=== PATIENT | female | born 1960 | race Caucasian/White ===

== ENCOUNTER 2017-09-30 18:22 | Emergency (ER) | payer OTHER ==
[~2017-09-30] VITALS: Ht 154.9 cm; Wt 56.7 kg
--- NOTE | 2017-09-30 18:44 | ED Back Pain ---
General Chief Complaint: Back Problems Stated Complaint: BACK PAIN COMING AROUND R SIDE Source of Information: Patient, Other Exam Limitations: No Limitations History of Present Illness Date Seen by Provider: Sep 30, 2017 Time Seen by Provider: 18:35 Initial Comments Patient presents to the ER by private conveyance with her significant other and a chief complaint for the past week she's had a progressively worsening productive cough and she had a large coughing fit yesterday resulted in some pain in her right back radiating around to the right side. She thinks she might have pulled a rib or broke her rib from the coughing fit. She does have COPD and she does have albuterol for which she uses for this. She smokes about a quarter pack cigarettes per day. She denies any trauma, fevers, nausea vomiting or subjective shortness of breath. She says it hurts take a deep breath and twist or to touch her right side ribs. She went to her primary care doctor this morning and they ordered x-rays [facility] but she has not got the read back on that. They told her she still having this much pain she go to the ER for evaluation. Spoke with [facility] and got a report on the x-ray showing negative for infiltrations although there is some atelectasis on bilateral bases. There is stable air trapping seen system of COPD. Nodular opacity seen on the left heart border on previous x-rays is not seen today and if we are evaluating for that we should consider CT of the chest. Negative for acute osseous abnormalities. Allergies and Home Medications Allergies Uncoded Allergies: ANTIBIOTIC (Allergy, Unknown, 09/30/17) Patient Home Medication List Home Medication List Reviewed: Yes Constitutional: No chills, No diaphoresis, No fever, No malaise EENTM: No ear discharge, No ear pain Respiratory: cough, phlegm, No short of breath, wheezing Cardiovascular: see HPI, chest pain, No edema, No palpitations Gastrointestinal: No abdominal pain, No constipation, No diarrhea, No nausea, No vomiting Genitourinary: No discharge, No dysuria Past Aaxtosd-Wxkwfq-Rkeygt Hx Patient Social History Smoking Status: Current Everyday Smoker Type Used: Cigarettes (0.25 ppd) Recent Foreign Travel: No Contact w/Someone Who Travel: No Physical Exam Vital Signs Vital Signs - First Documented 09/30/17 18:31 Temp 98.0 Pulse 113 Resp 18 B/P (MAP) 156/99 (118) Pulse Ox 97 O2 Delivery Room Air Capillary Refill : General Appearance: No Apparent Distress, WD/WN, Anxious HEENT: PERRL/EOMI, Pharynx Normal Neck: Full Range of Motion, Normal Inspection, Non Tender, Supple Cardiovascular: Regular Rate, Rhythm, No Edema, Normal Peripheral Pulses Respiratory: No Accessory Muscle Use, No Respiratory Distress, Wheezing, Other (no labored breathing but the chest is definite tender on the right flank ribs about T10 through T12) Peripheral Pulses: 2+ Radial Pulses (R), 2+ Radial Pulses (L) Back: Normal Inspection, No CVA Tenderness, No Vertebral Tenderness Neurologic/Psychiatric: Alert, Oriented x3 Progress/Results/Core Measures Results/Orders Lab Results Laboratory Tests Test 09/30/17 18:53 Range/Units White Blood Count 11.8 H 4.3-11.0 10^3/uL Red Blood Count 4.35 4.35-5.85 10^6/uL Hemoglobin 13.7 11.5-16.0 G/DL Hematocrit 41 35-52 % Mean Corpuscular Volume 95 80-99 FL Mean Corpuscular Hemoglobin 32 25-34 PG Mean Corpuscular Hemoglobin Concent 33 32-36 G/DL Red Cell Distribution Width 12.5 10.0-14.5 % Platelet Count 332 130-400 10^3/uL Mean Platelet Volume 8.6 7.4-10.4 FL Neutrophils (%) (Auto) 71 42-75 % Lymphocytes (%) (Auto) 22 12-44 % Monocytes (%) (Auto) 7 0-12 % Eosinophils (%) (Auto) 1 0-10 % Basophils (%) (Auto) 0 0-10 % Neutrophils # (Auto) 8.4 H 1.8-7.8 X 10^3 Lymphocytes # (Auto) 2.6 1.0-4.0 X 10^3 Monocytes # (Auto) 0.8 0.0-1.0 X 10^3 Eosinophils # (Auto) 0.1 0.0-0.3 10^3/uL Basophils # (Auto) 0.0 0.0-0.1 10^3/uL Sodium Level 136 135-145 MMOL/L Potassium Level 3.9 3.6-5.0 MMOL/L Chloride Level 99 98-107 MMOL/L Carbon Dioxide Level 28 21-32 MMOL/L Anion Gap 9 5-14 MMOL/L Blood Urea Nitrogen 19 H 7-18 MG/DL Creatinine 0.74 0.60-1.30 MG/DL Estimat Glomerular Filtration Rate > 60 BUN/Creatinine Ratio 26 Glucose Level 105 70-105 MG/DL Calcium Level 9.3 8.5-10.1 MG/DL Total Bilirubin 0.4 0.1-1.0 MG/DL Aspartate Amino Transf (AST/SGOT) 17 5-34 U/L Alanine Aminotransferase (ALT/SGPT) 12 0-55 U/L Alkaline Phosphatase 83 40-136 U/L C-Reactive Protein High Sensitivity 2.39 H 0.00-0.50 MG/DL Total Protein 7.5 6.4-8.2 GM/DL Albumin 4.3 3.2-4.5 GM/DL My Orders Orders - ARON WRIGHT Cbc With Automated Diff (09/30/17 18:46) Comprehensive Metabolic Panel (09/30/17 18:46) Hs C Reactive Protein (09/30/17 18:46) Albuterol Pre-Mix Nebs (Rt) (Proventil (09/30/17 18:46) Albuterol/Ipra Inhalation Soln (Duoneb I (09/30/17 19:00) Svn Sm Volume Nebulizer Rt-Rfs (09/30/17 18:46) Albuterol/Ipra Inhalation Soln (Duoneb I (09/30/17 18:47) Jf-Ngxjchi-Xrffzr (Order) (09/30/17 18:54) Methylprednisolone Sod Succ (Solu-Medrol (09/30/17 19:00) Medications Given in ED Current Medications Medications Dose Ordered Sig/Kalyn Route Start Time Stop Time Status Last Admin Dose Admin Albuterol/ Ipratropium 3 ml ONCE ONCE INH 09/30/17 19:00 09/30/17 19:01 DC 09/30/17 18:49 3 ML Methylprednisolone Sodium Succinate 125 mg ONCE ONCE IVP 09/30/17 19:00 09/30/17 19:01 DC 09/30/17 19:14 125 MG Vital Signs/I&O Vital Sign - Last 12Hours 09/30/17 18:31 Temp 98.0 Pulse 113 Resp 18 B/P (MAP) 156/99 (118) Pulse Ox 97 O2 Delivery Room Air Progress Note #1: Time: 18:44 Progress Note No evidence on her radiograph of pneumonia however she does have pretty severe wheezing sore and give her some breathing treatments and make sure she has appropriate treatments at home. She probably do well with some steroids for both the anti-inflammatory pain property as well as her COPD exacerbation. We' ll make sure she has close follow-up with her primary care physician early next week. Progress Note #2: Time: 19:25 Progress Note Patient's wheezing has completely resolved however she still has some tightness of her air sounds. She feels much better and is ready to go home. Lab is not remarkable for pneumonia. Still afebrile and her tachycardia has improved significantly to 105 which is reasonable after 2 albuterol breathing treatments. She assures me she has plenty of albuterol home. Departure Impression Impression: Primary Impression: COPD with acute exacerbation Additional Impression: Rib pain on right side Disposition: 01 HOME, SELF-CARE Condition: Improved Departure-Patient Inst. Decision time for Depature: 19:26 Referrals: ELLIE GIFFORD (PCP/Family) Primary Care Physician Patient Instructions: Exacerbation of COPD (DC) Add. Discharge Instructions: For the first 3 days take 2 tablets of prednisone twice a day. For the next 3 days take one tablet of prednisone twice a day and for the final 3 days take one tablet of prednisone daily for a total of 9 days. Plan to follow up with your primary care physician next week. If he started developing fevers or worsening shortness of breath or your albuterol was not sufficient to control your coughing, wheezing or shortness of breath return to the ER nearest you. Use ibuprofen 800 mg every 8 hours and Tylenol thousand milligrams every 6 hours as well as creams such as icy hot for your rib pain. All discharge instructions reviewed with patient and/or family. Voiced understanding. Scripts Prednisone (Prednisone) 20 Mg Tab 40 MG PO BID for 9 Days, #18 TAB 0 Refills 2 tabs twice daily x 3 days 1 tab twice daily x 3 days 1 tab daily x 3 days Prov: ARON WRIGHT 09/30/17 Azithromycin (Azithromycin) 250 Mg Tablet 250 MG PO DAILY, #4 TAB 0 Refills Prov: ARON WRIGHT 09/30/17 Copy Copies To 1: CHRIS LOPEZ TITUS J Sep 30, 2017 18:44
[2017-09-30] MEDS ORDERED: RT-ALBUTEROL SULF 2.5 MG/3 ML PRE-MIX VIAL INH STA (18:46)
[2017-09-30] MEDS ORDERED: RT-ALBUTEROL/IPRATROPIUM 3 ML (DUONEB) VIAL ONE (18:47)
[2017-09-30] MEDS ORDERED: methylPREDNISolone 125 MG (Solu-MEDROL) VIAL IVP ONE (19:00)
[2017-09-30] MEDS ORDERED: RT-ALBUTEROL/IPRATROPIUM 3 ML (DUONEB) VIAL INH ONE (19:00)
[2017-09-30 19:04] LABS: BASOPHILS % (AUTO) 0 % (0-10); EOSINOPHILS # (AUTO) 0.1 10^3/uL (0.0-0.3); EOSINOPHILS % (AUTO) 1 % (0-10); HEMATOCRIT 41 % (35-52); HEMOGLOBIN 13.7 G/DL (11.5-16.0); LYMPHOCYTES # (AUTO) 2.6 X 10^3 (1.0-4.0); LYMPHOCYTES % (AUTO) 22 % (12-44); MEAN CORPUSCULAR HEMOGLOBIN 32 PG (25-34); MEAN CORPUSCULAR HGB CONC 33 G/DL (32-36); MEAN CORPUSCULAR VOLUME 95 FL (80-99); MEAN PLATELET VOLUME 8.6 FL (7.4-10.4); MONOCYTES # (AUTO) 0.8 X 10^3 (0.0-1.0); MONOCYTES % (AUTO) 7 % (0-12); NEUTROPHILS # (AUTO) 8.4 X 10^3 (1.8-7.8); NEUTROPHILS % (AUTO) 71 % (42-75); PLATELET COUNT 332 10^3/uL (130-400); RED BLOOD COUNT 4.35 10^6/uL (4.35-5.85); RED CELL DISTRIBUTION WIDTH 12.5 % (10.0-14.5); WHITE BLOOD COUNT 11.8 10^3/uL (4.3-11.0)
[2017-09-30 19:22] LABS: ALANINE AMINOTRANSFERASE 12 U/L (0-55); ALBUMIN 4.3 GM/DL (3.2-4.5); ALKALINE PHOSPHATASE 83 U/L (40-136); BILIRUBIN,TOTAL 0.4 MG/DL (0.1-1.0); BUN/CREATININE RATIO 26; CALCIUM 9.3 MG/DL (8.5-10.1); CARBON DIOXIDE 28 MMOL/L (21-32); CHLORIDE 99 MMOL/L (98-107); CREATININE SERUM 0.74 MG/DL (0.60-1.30); GFR ESTIMATED > 60; GLUCOSE 105 MG/DL (70-105); POTASSIUM 3.9 MMOL/L (3.6-5.0); SODIUM 136 MMOL/L (135-145); TOTAL PROTEIN 7.5 GM/DL (6.4-8.2)
[2017-09-30] MEDS ORDERED: AZIT250T12 PO (19:32)
[2017-09-30] MEDS ORDERED: PRD20T PO (19:32)
[2017-09-30 19:42] VITALS: BP 138/78
[2017-09-30] MEDS ORDERED: AZITHROMYCIN 250 MG TAB (ZITHROMAX) PO ONE (19:45)
== END 2017-09-30 19:41 | disposition home or self-care (01) ==
LOC: EDUNIT# 18:22 → ER 18:24
DX: J44.1 Chronic obstructive pulmonary disease with (acute) exacerbation (principal); R07.2 Precordial pain; F17.210 Nicotine dependence, cigarettes, uncomplicated; Z88.1 Allergy status to other antibiotic agents
CPT/HCPCS: 36415; 80053; 85025; 86141; 96374

== ENCOUNTER 2019-03-13 05:48 | Outpatient (CLI) | payer OTHER ==
[~2019-03-13] VITALS: Ht 154.9 cm; Wt 56.7 kg
[~2019-03-13 05:48] MED LIST: AZIT250T12 PO; PRD20T PO
== END 2019-03-13 14:40 | disposition home or self-care (01) ==
LOC: PREOP 05:48
PROVIDERS: ATTEND Surgery
DX: Z01.818 Encounter for other preprocedural examination (principal)

== ENCOUNTER 2019-03-20 07:14 | Day surgery (SDC) | payer BC, OTHER ==
[~2019-03-20] VITALS: Ht 154.9 cm; Wt 56.7 kg
[2019-03-20] VITALS (10 sets, daily range): BP systolic 123–155; BP diastolic 68–101
[2019-03-20] MEDS ORDERED: LACTATED RINGERS 1,000 ML IV ONE (07:30)
[2019-03-20] MEDS ORDERED: LACTATED RINGERS 1,000 ML IV STA (07:32)
[2019-03-20] MEDS ORDERED: RT-ALBUTEROL SULF 2.5 MG/3 ML PRE-MIX VIAL ONE (07:38)
[2019-03-20] MEDS ORDERED: RT-ALBUTEROL SULF 2.5 MG/3 ML PRE-MIX VIAL INH ONE (07:40)
[2019-03-20] MEDS ORDERED: FLUO40CA12 PO (08:04)
[2019-03-20] MEDS ORDERED: HYDR12.525 PO (08:04)
[2019-03-20] MEDS ORDERED: POLY17PO6 PO (08:04)
[2019-03-20] MEDS ORDERED: FLUO20CA42 PO (08:04)
[2019-03-20] MEDS ORDERED: BUSP15TA60 PO (08:04)
[2019-03-20] MEDS ORDERED: TIOT18CA2 IH (08:04)
[2019-03-20] MEDS ORDERED: SPIRIVA PO (08:04)
[2019-03-20] MEDS ORDERED: CEPH500C PO (08:04)
[2019-03-20] MEDS ORDERED: MIDAZOLAM 2 MG/2 ML (VERSED) VIAL ONE (08:06)
[2019-03-20] MEDS ORDERED: proPOfol 200 MG/20 ML (DIPRIVAN) VIAL IV ONE (08:06)
[2019-03-20] MEDS ORDERED: PANT40TA2 PO (08:13)
[2019-03-20] MEDS ORDERED: IBUP-2055 PO (08:13)
[2019-03-20] MEDS ORDERED: RT-ALBUINH IH (08:13)
[2019-03-20] MEDS ORDERED: BENZ100C18 PO (08:13)
[2019-03-20] MEDS ORDERED: ALBU2.5V4 INH (08:13)
[2019-03-20] MEDS ORDERED: CLON0.5T PO (08:13)
[2019-03-20] MEDS ORDERED: HURRICAINE EXT TUBE (BENZOCAINE) XX ONE (08:15)
--- NOTE | 2019-03-20 09:00 | Progress Note-Post Operative ---
Post-Operative Progess Note Surgeon (s)/International Logistics Analyst (s) Surgeon SUMIT MCFADDEN DO International Logistics Analyst: none Pre-Operative Diagnosis Bloating, Epigastric pain Post-Operative Diagnosis Gastritis Hiatal Hernia Gastric Polyp Procedure & Operative Findings Date of Procedure 03/20/19 Procedure Performed/Findings EGD with bx Anesthesia Type IV sedation by AVIATION MAINTENANCE INSTRUCTOR Estimated Blood Loss Estimated blood loss (mL): scant Specimens/Packing Specimens Removed antral bx body of stomach bx GE jxn bx SUMIT MCFADDEN DO Mar 20, 2019 09:00
--- NOTE | 2019-03-20 09:02 | Endoscopy Discharge Instruct ---
Endo Procedure/Findings Findings 1.: Gastritis 2.: Hiatal Hernia Discharge Instructions - Activity: You might feel a little sleepy until tomorrow. This is due to the medicine you received to relax you. Until tomorrow, you should: NOT drive a car, operate machinery or power tools. NOT drink any alcoholic beverages. NOT make any important decisions or sign importortant papers. Do not return to work until tomorrow, unless otherwise instructed. Resume previous activities tomorrow. Diet: Start by taking liquids. If you tolerate liquids, advance to solid food. Make an appointment for one week. Notify Physician - If you experience excessive bleeding, unusual abdominal pain, fever, or chest pain, contact your doctor immediately. Follow-Up: - I have received and understand the above instructions and will call my doctor if I have any further questions. Patient Signature Date Nurse Signature Other (Relationship) SUIMT MCFADDEN DO Mar 20, 2019 09:02
--- NOTE | 2019-03-20 10:28 | Anesthesia-General Post-Op ---
MAC Patient Condition Mental Status/LOC: Same as Preop Cardiovascular: Satisfactory Nausea/Vomiting: Absent Respiratory: Satisfactory Pain: Controlled Complications: Absent Post Op Complications Complications None Follow Up Care/Instructions Patient Instructions None needed. Anesthesiology Discharge Order Discharge Order Patient is doing well, no complaints, stable vital signs, no apparent adverse anesthesia problems. No complications reported per nursing. KENDELL CARRERO CRNA Mar 20, 2019 10:28
--- NOTE | 2019-03-20 13:52 | OPERATIVE REPORT ---
DATE OF SERVICE: 03/20/2019 PREOPERATIVE DIAGNOSES: 1. Bloating. 2. Epigastric pain. POSTOPERATIVE DIAGNOSES: 1. Gastritis. 2. Hiatal hernia. 3. Gastric polyps. SURGEON: Tim Watkins DO GRANTS DIRECTOR: None. ANESTHESIA: IV sedation by OCEAN TRANSPORTATION INTERMEDIARY. SPECIMEN: One biopsy from the antrum, one biopsy from the body of stomach, one biopsy from the GE junction. BLOOD LOSS: Scant. FLUIDS: Per anesthesia. POSTOPERATIVE CONDITION: Stable. INDICATION FOR PROCEDURE: The patient is a 58-year-old female who has been having abdominal pain, bloating, whenever she eats she gets this epigastric pain and needed a workup. FINDINGS: The patient had some gastritis. She also had a hiatal hernia and has had gastric polyps, which indicates a long-term gastritis and PPI intake. PROCEDURE NOTE: After informed consent was obtained, the patient was brought to the endoscopy suite and placed in the left lateral decubitus position. She was administered IV sedation by the OCE[employer] TRANSPORTATION INTERMEDIARY who then monitored her vitals the entire time, heart rate, blood pressure and pulse ox and the scope was inserted down the mouth through the esophagus into the stomach. Upon entering the stomach, noted some gastritis. Pushed forward, pushed through the antrum into the duodenum, duodenum looked fine. Took a picture and then pulled back into the antrum and noted again gastritis and elected to do a biopsy of the antrum and then pulled the scope back and noted some polyps and elected to do a biopsy of the body of stomach and take a polyp out through this with just biopsy forceps. Retroflexed the scope, saw hiatal hernia, maybe 1 to 2 cm hernia. Pulled back into the GE junction, looked okay and then pulled the scope up the esophagus and out the mouth. The patient tolerated the procedure. She was recovered in endoscopy suite. Job ID: [id number] DocumentID: [id number] Dictated Date: 03/20/2019 09:10:58 Plumbing Inspector Date: 03/20/2019 13:51:55 Dictated By: TIM WATKINS DO
== END 2019-03-20 10:03 | disposition home or self-care (01) ==
LOC: ENDO 07:14
PROVIDERS: ATTEND Surgery
DX: K29.50 Unspecified chronic gastritis without bleeding (principal); K21.9 Gastro-esophageal reflux disease without esophagitis; K44.9 Diaphragmatic hernia without obstruction or gangrene; K31.7 Polyp of stomach and duodenum; J44.9 Chronic obstructive pulmonary disease, unspecified; I10 Essential (primary) hypertension; Z99.89 Dependence on other enabling machines and devices; Z88.6 Allergy status to analgesic agent; Z88.1 Allergy status to other antibiotic agents; Z88.8 Allergy status to other drugs, medicaments and biological substances; Z82.49 Family history of ischemic heart disease and other diseases of the circulatory system
CPT/HCPCS: 88305; 94640

== ENCOUNTER → 2019-09-06 | Outpatient (CLI) | payer BC, OTHER ==
[~2019-09-06] MED LIST changes: +ALBU2.5V4 INH; +BENZ100C18 PO; +BUSP15TA60 PO; +CEPH500C PO; +CLON0.5T PO; +FLUO20CA42 PO; +FLUO40CA12 PO; +HYDR12.525 PO; +IBUP-2473 PO; +PANT40TA2 PO; +POLY17PO6 PO; +RT-ALBUINH IH; +SPIRIVA PO; +TIOT18CA2 IH
--- NOTE | 2019-09-06 16:13 | Diagnostic Imaging Report ---
EXAMINATION: CT Chest without contrast. TECHNIQUE: Multiple contiguous axial images were obtained through the chest without the use of intravenous contrast. All CT scans use one or more of the following dose optimizing techniques: automated exposure control, MA and/or KvP adjustment based on a patient size and exam type, or iterative reconstruction. HISTORY: Lung cancer. COMPARISON: 04/14/2019 FINDINGS: There is no edema or pneumonia. No pleural effusion. No pneumothorax. The right upper lobe nodule is decreased in size measuring 10 mm, previously 16 mm. Surrounding scarring or atelectasis is likely related to radiation. Lungs are moderately emphysematous. No other pulmonary nodules are seen. Heart size is normal. There are moderate coronary artery calcifications. No pericardial effusion. Aorta is normal in caliber. There is no axillary or supraclavicular lymphadenopathy. There is no mediastinal lymphadenopathy. Limited views of the upper abdomen show changes of cholecystectomy. There are no suspicious osseous lesions. There are old right-sided rib fractures. IMPRESSION: 1. Decrease in size of right upper lobe pulmonary nodules surrounding scarring or atelectasis suggestive of radiation changes. Dictated by: Dictated on workstation # [id number]
== END ==
LOC: RAD 14:18
PROVIDERS: ATTEND Nurse Practitioner Family
DX: C34.11 Malignant neoplasm of upper lobe, right bronchus or lung (principal)
CPT/HCPCS: 71250

== ENCOUNTER → 2020-01-18 | Outpatient (CLI) | payer OTHER ==
--- NOTE | 2020-01-18 11:47 | Diagnostic Imaging Report ---
PROCEDURE: CT chest without contrast. TECHNIQUE: Multiple contiguous axial images were obtained through the chest without the use of intravenous contrast. Auto Exposure Controls were utilized during the CT exam to meet ALARA standards for radiation dose reduction. INDICATION: Malignant neoplasm involving upper lobe of right lung. COMPARISON: Comparison is made to study of 09/06/2019. FINDINGS: There has been an overall increase in atelectasis in the basilar medial aspect of the right upper lobe. There is also scarring more superiorly in the right upper lobe anterior to the aortic trunk. Background emphysema is again noted. No new mass is identified. Unenhanced images reveal no definite pathologic adenopathy within the pulmonary braulio. Mildly prominent precarinal lymph nodes are stable. IMPRESSION: Post-therapeutic changes in the right lung with increased atelectasis in the right perihilar region. No new mass or adverse change is identified. Dictated by: Dictated on workstation # [id number]
== END ==
LOC: RAD 10:56
PROVIDERS: ATTEND Nurse Practitioner Family
DX: C34.11 Malignant neoplasm of upper lobe, right bronchus or lung (principal); J98.11 Atelectasis
CPT/HCPCS: 71250

== ENCOUNTER → 2020-03-15 | Outpatient (CLI) | payer OTHER ==
--- NOTE | 2020-03-15 14:58 | Diagnostic Imaging Report ---
INDICATION: Routine screening. COMPARISON: Prior mammograms from 11/24/2018 and 01/06/2013. EXAMINATION: 2D and 3D bilateral screening mammography was performed with CAD. The current study was also evaluated with a Computer Aided Detection (CAD) system. FINDINGS: Scattered fibroglandular densities are identified, bilaterally. Ovoid circumscribed density in the upper-outer right breast appears stable. No new mass or malignant appearing microcalcification is seen. Axillae are unremarkable. IMPRESSION: No mammographic features suspicious for malignancy are identified. ACR BI-RADS Category 2: Benign findings. Result letter will be mailed to the patient. Note: At least 10% of breast cancer is not imaged by mammography. Dictated by: Dictated on workstation # [id number]
== END ==
LOC: RAD 09:15
PROVIDERS: ATTEND Student in an Organized Health Care Education/Training Program
DX: Z12.31 Encounter for screening mammogram for malignant neoplasm of breast (principal)
CPT/HCPCS: 77063; 77067

== ENCOUNTER → 2020-05-16 | Outpatient (CLI) | payer OTHER ==
--- NOTE | 2020-05-16 12:53 | Diagnostic Imaging Report ---
PROCEDURE: US Gallbladder. TECHNIQUE: Multiple real-time grayscale images were obtained over the right upper quadrant in various projections. INDICATION: Right upper quadrant pain. FINDINGS: The liver is normal in size at 14 cm. No discrete liver mass is detected. Portal vein is patent and shows normal direction of flow. Gallbladder is surgically absent. No biliary duct dilatation is seen. Visualized pancreas unremarkable. Aorta was not well visualized. IVC is patent. Right kidney is without calculi or hydronephrosis. There is no ascites. IMPRESSION: Status post cholecystectomy. No acute feature is detected. Dictated by: Dictated on workstation # [id number]
== END ==
LOC: RAD 08:48
PROVIDERS: ATTEND Nurse Practitioner Family
DX: R10.11 Right upper quadrant pain (principal); Z90.49 Acquired absence of other specified parts of digestive tract
CPT/HCPCS: 76705

== ENCOUNTER → 2020-05-20 | Outpatient (CLI) | payer OTHER ==
[~2020-05-20] MED LIST changes: +CATHETER FLUSH 10 ML SYR IV PRN
--- NOTE | 2020-05-20 10:41 | Diagnostic Imaging Report ---
INDICATION: Right upper quadrant abdominal pain. Patient has had prior cholecystectomy. TECHNIQUE: The patient was administered 5.4 mCi of technetium 99m intravenously and imaging over the abdomen was performed. FINDINGS: There is homogeneous uptake of activity by the liver. Prompt excretion of activity into the common duct is noted with normal passage into the small bowel. The gallbladder is surgically absent. IMPRESSION: Patent common duct. The gallbladder is surgically absent. Dictated by: Dictated on workstation # [id number]
== END ==
LOC: CARD 09:24
PROVIDERS: ATTEND Nurse Practitioner Family
DX: R10.11 Right upper quadrant pain (principal)
CPT/HCPCS: 78226; A9537

== ENCOUNTER → 2020-07-10 | Outpatient (CLI) | payer OTHER ==
[~2020-07-10] MED LIST changes: -CATHETER FLUSH 10 ML SYR IV PRN
--- NOTE | 2020-07-10 10:06 | Diagnostic Imaging Report ---
PROCEDURE: CT chest without contrast. TECHNIQUE: Multiple contiguous axial images were obtained through the chest without the use of intravenous contrast. Auto Exposure Controls were utilized during the CT exam to meet ALARA standards for radiation dose reduction. INDICATION: Cough, COPD The prior exam of 01/18/2020 noted that the lungs were hyperexpanded and that there appeared to be chronic atelectasis/scar formation involving the right middle lobe. Those findings are again evident on this study and do not seem to have changed significantly. There is no evidence for failure, pneumonia or for pleural effusion to indicate an acute abnormality. There is no parenchymal lung mass visualized either. The heart size is stable when compared to the prior exam. There are extensive coronary artery calcifications evident. The aorta is not abnormally dilated. There is no obvious mediastinal or hilar adenopathy. The thyroid gland is not well imaged. The sections through the upper abdomen again show that the gallbladder is surgically absent. There is no acute abnormality noted. The bone windows are unremarkable for a acute fracture or for destructive lesion. The compression deformities of the mid thoracic vertebra an incompletely healed fracture of the right 7th and 8th ribs seen previously are again evident and no different. Impression: There is chronic pulmonary disease but there is no sign of an acute cardiopulmonary abnormality. When compared to the prior study there has been no significant change. Dictated by: Dictated on workstation # [id number]
== END ==
LOC: RAD 09:21
PROVIDERS: ATTEND Radiology Radiation Oncology
DX: C34.11 Malignant neoplasm of upper lobe, right bronchus or lung (principal)
CPT/HCPCS: 71250

== ENCOUNTER 2020-08-23 21:08 | Inpatient (IN) | payer OTHER ==
[~2020-08-23] VITALS: Ht 157 cm; Wt 55.3 kg
[2020-08-23] MEDS ORDERED: morphine INJ 10 MG/ML 1ML (SYR OR VIAL) ONE (21:15)
[2020-08-23] MEDS ORDERED: NITROGLYCERIN 0.4 MG SL TABS BTL 25'S SL PRN (21:15)
[2020-08-23] MEDS ORDERED: HEParin 1000 UNIT/ML (10ML VIAL) FOR BOLUS ONE ×2 (21:18→21:41)
[2020-08-23] MEDS ORDERED: CLOPIDOGREL 300 MG (PLAVIX) TABLET PO ONE ×3 (21:18→21:30)
[2020-08-23 21:25] LABS: BASOPHILS % (AUTO) 0 % (0-10); EOSINOPHILS # (AUTO) 0.1 10^3/uL (0.0-0.3); EOSINOPHILS % (AUTO) 0 % (0-10); HEMATOCRIT 41 % (35-52); HEMOGLOBIN 13.6 g/dL (11.5-16.0); LYMPHOCYTES # (AUTO) 2.3 10^3/uL (1.0-4.0); LYMPHOCYTES % (AUTO) 13 % (12-44); MEAN CORPUSCULAR HEMOGLOBIN 33 pg (25-34); MEAN CORPUSCULAR HGB CONC 34 g/dL (32-36); MEAN CORPUSCULAR VOLUME 99 fL (80-99); MEAN PLATELET VOLUME 8.8 fL (9.0-12.2); MONOCYTES # (AUTO) 0.9 10^3/uL (0.0-1.0); MONOCYTES % (AUTO) 5 % (0-12); NEUTROPHILS # (AUTO) 14.8 10^3/uL (1.8-7.8); NEUTROPHILS % (AUTO) 82 % (42-75); PLATELET COUNT 304 10^3/uL (130-400); WHITE BLOOD COUNT 18.1 10^3/uL (4.3-11.0)
[2020-08-23] MEDS ORDERED: ALBUTEROL/IPRATROP (COMBIVENT RESPIMAT) 4 GM INHALER ONE (21:25)
--- NOTE | 2020-08-23 21:25 | NUR ---
RADIOTRANSPARENT DEFIB PATCHES PLACED TO PT.
--- NOTE | 2020-08-23 21:25 | NUR ---
RAPID COVID COLLECTED PRIOR TO LINE RUNNER ADMIT.
[2020-08-23] MEDS ORDERED: HEParin (CATH LAB) 1,000 ML IV ONE (21:26)
[2020-08-23] MEDS ORDERED: NS IV 1000 ML 1,000 ML IV ONE ×2 (21:26→21:45)
[2020-08-23] MEDS ORDERED: LIDOCAINE 1% INJ 20 ML 20 ML VIAL INJ ONE (21:26)
[2020-08-23] MEDS ORDERED: NITRO DRIP 25000 MCG/D5W 250 ML IV ONE (21:26)
[2020-08-23] MEDS ORDERED: ONDANSETRON 4 MG/2 ML (SDV) Z0FRAN IVP ONE (21:30)
[2020-08-23] MEDS ORDERED: morphine INJ 10 MG/ML 1ML (SYR OR VIAL) IVP ONE ×2 (21:30)
--- NOTE | 2020-08-23 21:35 | Diagnostic Imaging Report ---
EXAMINATION: Chest 1 view. HISTORY: Chest pain. COMPARISON: CT chest on 07/10/2020. FINDINGS: The lung volumes are normal. No focal consolidation is seen. No large pleural effusion or pneumothorax is seen. The cardiomediastinal silhouette is normal in size and contour. No acute osseous abnormality is seen. Old right-sided rib fractures are noted. IMPRESSION: No acute pleuroparenchymal process. Dictated by: Dictated on workstation # [id number]
--- NOTE | 2020-08-23 21:35 | ED Chest Pain ---
General Chief Complaint: Chest Pain Stated Complaint: STEMI Source: patient History of Present Illness Date Seen by Provider: Aug 23, 2020 Time Seen by Provider: 21:12 Initial Comments PT ARRIVES VIA [facility] FROM HOME C/O LEFT SIDED CHEST PAIN AND LEFT ARM PAIN SINCE 1929 OR 1999 TONIGHT--WAS SITTING WHEN PAIN BEGAN RATES PAIN 10/10 EMS GAVE ASPIRIN AND NTG X2--STATES PAIN WENT DOWN TO A 5/10, BUT NOW IS BACK TO A 10/10 INITIAL BP WAS IN 170'S SYSTOLIC FOR EMS, THEN DROPPED TO 120'S AFTER NTG C/O NAUSEA AND VOMITED X 1 PT HAS COPD AND WEARS HOME O2 PRN, STATES HER SHORTNESS OF BREATH IS NOT ANY WORSE THAN NORMAL NO SWEATS NO SYNCOPE NO PALPITATIONS NO SWELLING IN LEGS/FEET OR PAIN IN CALVES DENIES ANY COVID-19 SYMPTOMS OR KNOWN EXPOSURE. DENIES ANY HISTORY OF CARDIAC PROBLEMS. PCP: DR. DUPONT AT [facility] Allergies and Home Medications Allergies Coded Allergies: albuterol (Unverified Allergy, Unknown, 03/20/19) aspirin (Unverified Allergy, Unknown, 03/20/19) ciprofloxacin (Unverified Allergy, Unknown, 03/20/19) clindamycin (Unverified Allergy, Unknown, 03/20/19) levofloxacin (Unverified Allergy, Unknown, 03/20/19) Uncoded Allergies: ANTIBIOTIC (Allergy, Unknown, 09/30/17) Home Medications Albuterol Sulfate 2.5 Mg/3 Ml Vial.neb, 2.5 MG INH DAILY, (Reported) Albuterol Sulfate 1 Puff Puff, 2 PUFF IH Q6H PRN for SHORTNESS OF BREATH, (Reported) 1 PUFF = 90 MCG Azithromycin 250 Mg Tablet, 250 MG PO DAILY Prescribed by: ARON WRIGHT on 09/30/171931 Benzonatate 100 Mg Capsule, 200 MG PO TID, (Reported) Buspirone HCl 15 Mg Tablet, 15 MG PO DAILY, (Reported) Cephalexin 500 Mg Capsule, 500 MG PO QID, (Reported) Clonazepam 0.5 Mg Tablet, 0.5 MG PO BID, (Reported) Fluoxetine HCl 20 Mg Capsule, 40 MG PO DAILY, (Reported) Fluoxetine HCl 40 Mg Capsule, 40 MG PO DAILY, (Reported) Hydrochlorothiazide 12.5 Mg Capsule, 12.5 MG PO DAILY, (Reported) Ibuprofen 200 Mg Tablet, 200 MG PO PRN, (Reported) Pantoprazole Sodium 40 Mg Tablet.dr, 40 MG PO DAILY, (Reported) Polyethylene Glycol 3350 17 Gm Powd.pack, 17 GM PO PRN, (Reported) Tiotropium [place] 1 Inh Aerp, 18 INH IH DAILY, (Reported) [Spiriva] , 18 MCG PO DAILY, (Reported) Patient Home Medication List Home Medication List Reviewed: Yes Review of Systems Review of Systems Constitutional: No diaphoresis, No dizziness, No fever EENTM: No Symptoms Reported Respiratory: See HPI Cardiovascular: See HPI, Chest Pain; Denies Edema Gastrointestinal: See HPI; Denies Abdominal Pain; Nausea, Vomiting Genitourinary: No Symptoms Reported Musculoskeletal: see HPI (LEFT ARM PAIN ) Skin: no symptoms reported Psychiatric/Neurological: No Symptoms Reported Endocrine: No Symptoms Reported Hematologic/Lymphatic: No Symptoms Reported Past Klrndyd-Tqomly-Fxhqhi Hx Past Med/Social Hx: Reviewed and Corrections made Patient Social History Alcohol Use: Denies Use Drug of Choice: DENIES Smoking Status: Current Everyday Smoker (1 PPD) Type Used: Cigarettes 2nd Hand Smoke Exposure: Yes Recent Hopitalizations: No Seasonal Allergies Seasonal Allergies: No Past Medical History Surgeries: Yes Gallbladder, Hysterectomy, Oophorectomy Respiratory: Yes (O2 PRNL; LUNG CANCER--TX WITH RADIATION) COPD Cardiac: Yes High Cholesterol Neurological: No 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 0.0oz. 56.811380gr; 23.6 BMI Method:Stated General Appearance: WD/WN, Anxious, Mild Distress (DYSPNEIC) HEENT: PERRL/EOMI Neck: Full Range of Motion, Normal Inspection, Non Tender, Supple; No Carotid Bruit, No JVD Respiratory: Chest Non Tender, Accessory Muscle Use, Wheezing (DIFFUSE WHEEZING BILATERALLY--LEFT > RIGHT. MILD TO MODERATE DYSPNEA, PT STATES IS NORMAL FOR HER. ) Cardiovascular: Regular Rate, Rhythm, No Edema, No JVD, No Murmur, Normal Peripheral Pulses Gastrointestinal: No Pulsatile Mass, Non Tender, Soft Extremity: Normal Capillary Refill, Normal Inspection, Normal Range of Motion, Non Tender, No Calf Tenderness, No Pedal Edema Neurologic/Psychiatric: Alert, Oriented x3, No Motor/Sensory Deficits, stocking inspector II- XII Norm as Tested Skin: Normal Color, Warm/Dry; No Diaphoresis Progress/Results/Core Measures Results/Orders Lab Results Laboratory Tests Test 08/23/20 21:18 08/23/20 21:25 Range/Units White Blood Count 18.1 H 4.3-11.0 10^3/uL Red Blood Count 4.11 3.80-5.11 10^6/uL Hemoglobin 13.6 11.5-16.0 g/dL Hematocrit 41 35-52 % Mean Corpuscular Volume 99 80-99 fL Mean Corpuscular Hemoglobin 33 25-34 pg Mean Corpuscular Hemoglobin Concent 34 32-36 g/dL Red Cell Distribution Width 12.4 10.0-14.5 % Platelet Count 304 130-400 10^3/uL Mean Platelet Volume 8.8 L 9.0-12.2 fL Immature Granulocyte % (Auto) 1 % Neutrophils (%) (Auto) 82 H 42-75 % Lymphocytes (%) (Auto) 13 12-44 % Monocytes (%) (Auto) 5 0-12 % Eosinophils (%) (Auto) 0 0-10 % Basophils (%) (Auto) 0 0-10 % Neutrophils # (Auto) 14.8 H 1.8-7.8 10^3/uL Lymphocytes # (Auto) 2.3 1.0-4.0 10^3/uL Monocytes # (Auto) 0.9 0.0-1.0 10^3/uL Eosinophils # (Auto) 0.1 0.0-0.3 10^3/uL Basophils # (Auto) 0.0 0.0-0.1 10^3/uL Immature Granulocyte # (Auto) 0.1 0.0-0.1 10^3/uL Neutrophils % (Manual) 82 % Lymphocytes % (Manual) 9 % Monocytes % (Manual) 4 % Eosinophils % (Manual) 0 % Basophils % (Manual) 0 % Band Neutrophils 2 % Reactive Lymphocytes 3 % Blood Morphology Comment NORMAL Prothrombin Time 13.2 12.2-14.7 SEC INR Comment 1.0 0.8-1.4 Activated Partial Thromboplast Time 25 24-35 SEC Sodium Level 138 135-145 MMOL/L Potassium Level 3.3 L 3.6-5.0 MMOL/L Chloride Level 101 98-107 MMOL/L Carbon Dioxide Level 23 21-32 MMOL/L Anion Gap 14 5-14 MMOL/L Blood Urea Nitrogen 13 7-18 MG/DL Creatinine 0.95 0.60-1.30 MG/DL Estimat Glomerular Filtration Rate 60 BUN/Creatinine Ratio 14 Glucose Level 168 H 70-105 MG/DL Calcium Level 8.8 8.5-10.1 MG/DL Corrected Calcium 8.7 8.5-10.1 MG/DL Magnesium Level 1.8 1.6-2.4 MG/DL Total Bilirubin 0.5 0.1-1.0 MG/DL Aspartate Amino Transf (AST/SGOT) 38 H 5-34 U/L Alanine Aminotransferase (ALT/SGPT) 27 0-55 U/L Alkaline Phosphatase 99 40-136 U/L Total Creatine Kinase 105 29-168 U/L Creatine Kinase MB 3.1 <6.6 NG/ML Myoglobin 75.3 10.0-92.0 NG/ML Troponin I < 0.028 <0.028 NG/ML B-Type Natriuretic Peptide 25.9 <100.0 PG/ML Total Protein 6.8 6.4-8.2 GM/DL Albumin 4.1 3.2-4.5 GM/DL Amylase Level 33 25-125 U/L Lipase 16 8-78 U/L Serum Alcohol < 10 <10 MG/DL Coronavirus 2019 (DANIS) Negative Negative My Orders Orders - JANE DOMINGUEZ DO Cbc With Automated Diff (08/23/20 21:12) Magnesium (08/23/20 21:12) Chest 1 View, Ap/Pa Only (08/23/20 21:12) Ekg Tracing (08/23/20 21:12) Comprehensive Metabolic Panel (08/23/20 21:12) Myoglobin Serum (08/23/20 21:12) Protime With Inr (08/23/20 21:12) Partial Thromboplastin Time (08/23/20 21:12) O2 (08/23/20 21:12) Monitor-Rhythm Ecg Trace Only (08/23/20 21:12) Ed Iv/Invasive Line Start (08/23/20 21:12) Creatine Kinase (08/23/20 21:12) Creatine Kinase Mb (08/23/20 21:12) Lipase (08/23/20 21:12) Amylase (08/23/20 21:12) BNP (08/23/20 21:12) Nitroglycerin 0.4 Mg Btl 25's (Nitrostat (08/23/20 21:15) Drug Screen Stat (Urine) (08/23/20 21:12) Ua Culture If Indicated (08/23/20 21:12) Morphine Injection (Morphine Injection (08/23/20 21:15) Morphine Injection (Morphine Injection (08/23/20 21:30) Heparin Injection (Heparin Injection) (08/23/20 21:30) Clopidogrel Tablet (Plavix Tablet) (08/23/20 21:30) Albuterol/Ipratropium Inhaler (Combivent (08/24/20 09:00) Heparin (Bolus Per Protocol) (Heparin (B (08/23/20 21:18) Clopidogrel Tablet (Plavix Tablet) (08/23/20 21:18) Clopidogrel Tablet (Plavix Tablet) (08/23/20 21:19) Covid 19 Inhouse Test (08/23/20 21:25) Manual Differential (08/23/20 21:18) Alcohol (08/23/20 21:18) Troponin I (08/23/20 21:18) Vital Signs/I&O 08/23/20 08/23/20 08/23/20 21:08 21:08 21:08 Pulse 113 Resp 20 B/P (MAP) 129/85 (100) Pulse Ox 96 O2 Delivery Nasal Cannula Nasal Cannula Nasal Cannula O2 Flow Rate 2.00 2.0 2.0 Progress Progress Note : Progress Note NO DETERIORATION IN PT'S CONDITION DURING ER STAY Initial ECG Impression Date: Aug 23, 2020 Initial ECG Impression Time: 21:15 Initial ECG Rate: 98 Initial ECG Rhythm: Normal Sinus Initial ECG Impression: Acute MT Diagnostic Imaging Comments CXR--NO ACUTE PROCESS, PER RADIOLOGIST REPORT AT 2144 Reviewed: Reviewed by Me Departure Communication (Admissions) Family Conversation SPOKE WITH PT'S AND UPDATED HIM ON PT'S CONDITION. HE REPORTS THAT PT HAS BEEN HAVING THIS SAME PAIN IN LEFT ARM FOR THE LAST MONTH. 2116--SPOKE WITH DR. DELONG, DIRECTOR SPECIAL EDUCATION COILER OPERATOR. WILL CALL IN STRUCTURAL STEEL DETAILER. ORDERS NOTED. 2134--DR. DELONG HERE, CARE TURNED OVER TO HIM Impression Primary Impression: STEMI (ST elevation myocardial infarction) Additional Impression: COPD (chronic obstructive pulmonary disease) Disposition: ADMITTED INPATIENT (TO STRUCTURAL STEEL DETAILER) Condition: Stable Admissions Decision to Admit Reason: Admit from ER (General) (TO STRUCTURAL STEEL DETAILER) Decision to Admit/Date: Aug 23, 2020 Time/Decision to Admit Time: 21:17 Departure-Patient Inst. Referrals: BREONNA DUPONT MD (PCP) Primary Care Physician ELLIE GIFFORD (Family) Primary Care Physician JANE DOMINGUEZ DO Aug 23, 2020 21:35
--- NOTE | 2020-08-23 21:35 | NUR ---
DR. DELONG HERE TO SEE PT.
[2020-08-23 21:36] LABS: PROTHROMBIN TIME PATIENT 13.2 SEC (12.2-14.7)
[2020-08-23] MEDS ORDERED: fentaNYL INJECTION 100 MCG/2 ML AMP ONE (21:40)
[2020-08-23] MEDS ORDERED: MIDAZOLAM 5 MG/5 ML (VERSED) VIAL ONE (21:40)
[2020-08-23 21:42] LABS: BAND NEUTROPHILS 2 %; BASOPHILS % (MANUAL) 0 %; EOSINOPHILS % (MANUAL) 0 %; LYMPHOCYTES % (MANUAL) 9 %; MONOCYTES % (MANUAL) 4 %; NEUTROPHILS % (MANUAL) 82 %; RBC MORPH NORMAL; REACTIVE LYMPHOCYTES 3 %
--- NOTE | 2020-08-23 21:45 | NUR ---
DR. DOMINGUEZ SPOKE WITH AND INFORMED OF PT CONDITION AND DR. DELONG TO PERFORM CARDIAC CATH. CARDIAC CATH CONSENT SIGNED BY PT EMERGENT CASE.
[2020-08-23 21:48] LABS: ALBUMIN 4.1 GM/DL (3.2-4.5); CHLORIDE 101 MMOL/L (98-107); POTASSIUM 3.3 MMOL/L (3.6-5.0); SODIUM 138 MMOL/L (135-145)
--- NOTE | 2020-08-23 21:49 | NUR ---
ZE VILLALTA REMODELER HERE, REPORT GIVEN. CLOTHING, COMBIVENT INH, SPACER SENT WITH PT. TO REMODELER AT THIS TIME.
[2020-08-23 21:50] LABS: AMYLASE 33 U/L (25-125); CALCIUM 8.8 MG/DL (8.5-10.1)
[2020-08-23 21:51] LABS: GLUCOSE 168 MG/DL (70-105); TOTAL PROTEIN 6.8 GM/DL (6.4-8.2)
[2020-08-23 21:52] LABS: CARBON DIOXIDE 23 MMOL/L (21-32)
[2020-08-23 21:53] LABS: BILIRUBIN,TOTAL 0.5 MG/DL (0.1-1.0)
[2020-08-23 21:54] LABS: ALKALINE PHOSPHATASE 99 U/L (40-136); CREATININE SERUM 0.95 MG/DL (0.60-1.30); GFR ESTIMATED 60
[2020-08-23 21:55] LABS: BUN/CREATININE RATIO 14
[2020-08-23 21:57] LABS: ALANINE AMINOTRANSFERASE 27 U/L (0-55); MAGNESIUM 1.8 MG/DL (1.6-2.4)
[2020-08-23 21:58] LABS: LIPASE 16 U/L (8-78)
[2020-08-23 21:59] LABS: CREATINE KINASE 105 U/L (29-168)
[2020-08-23] MEDS ORDERED: EPTIFIBATIDE BOLUS 10 ML IV ONE (22:05)
[2020-08-23 22:06] LABS: CREATINE KINASE MB 3.1 NG/ML (<6.6)
[2020-08-23] MEDS ORDERED: niCARdipine 25 MG/10 ML (CARDENE) AMP IV ONE (22:08)
[2020-08-23] MEDS ORDERED: NS (IVPB) 250 ML ONE (22:08)
--- NOTE | 2020-08-23 22:32 | Cardiology History & Physical ---
HPI-Cardiology Cardiology Consultation Date of Consultation 08/23/20 Date of Admission Time Seen by Provider: 09:30 Indication: chest pain HPI 60-year-old lady with history of bronchial asthma, COPD, active smoker, peptic ulcer disease. Started to have chest pain and came into the emergency room, was severely short of breath and nauseous, vomited once in the ER, borderline hypo tensive. Became more hypotensive after nitroglycerin with a blood pressure in the 70s responded to IV fluid. Noted to have ST elevation myocardial infarction. On my evaluation she was still having active pain, anxious and short of breath. No similar episodes in the past PMH-Cardiology Seasonal Allergies Seasonal Allergies: No Surgeries Yes Respiratory Yes Cardiovascular Yes Neurological No Reproductive System Hysterectomy Genitourinary No Gastrointestinal Yes Gastrointestinal Bleed Musculoskeletal Yes Fibromyalgia Endocrine No HEENT No Cancer No Psychosocial No Integumentary No Blood Transfusions No Adverse Rxn to Transfusion: No Social History Patient Social History Marrital Status: Employed/Student: employed Smoking: Current every day smoker Family Hx Other History of atherosclerosis ROS-Cardiology Review of Systems General: No Chills, No Night Sweats, No Fatigue, No Malaise, No Appetite HEENT: No Head Aches, No Visual Changes, No Eye Pain, No Ear Pain, No Dysphasia, No Sinus Congestion, No Post Nasal Drip, No Sore Throat Pulmonary: Dyspnea; No Cough, No Pleuritic Chest Pain Cardiovascular: Chest Pain; No: Palpitations, Orthopnea, Paroxysmal Noc. D yspnea, Edema, Lt Headedness Gastrointestinal: Nausea, Vomiting; No: Abdominal Pain, Diarrhea, Constipation, Melena, Hematochezia Genitourinary: No Dysuria, No Frequency, No Incontinence, No Hematuria, No Retention Musculoskeletal: No: neck pain, shoulder pain, arm pain, back pain, hand pain, leg pain, foot pain Neurological: No: Weakness, Numbness, Incoordination, Change in speech, Confusion, Seizures Home Medications & Allergies Allergies: Coded Allergies: albuterol (Unverified Allergy, Unknown, 03/20/19) aspirin (Unverified Allergy, Unknown, 03/20/19) ciprofloxacin (Unverified Allergy, Unknown, 03/20/19) clindamycin (Unverified Allergy, Unknown, 03/20/19) levofloxacin (Unverified Allergy, Unknown, 03/20/19) Uncoded Allergies: ANTIBIOTIC (Allergy, Unknown, 09/30/17) Home Medication List Reviewed: Yes Exam-Cardiology Vital Signs Vital Signs Date Time Temp Pulse Resp B/P (MAP) Pulse Ox O2 Delivery O2 Flow Rate FiO2 08/23/20 21:45 101 16 129/89 (100) 99 Nasal Cannula 2.00 Exam General Appearance: Alert, Oriented X3, Cooperative, No Acute Distress HEENT: Atraumatic, PERRLA Respiratory: Clear to Auscultation, Normal Air Movement Cardiovascular: Regular Rate, Normal S1, Normal S2, No Murmurs Abdominal: Normal Bowel Sounds, Soft, No Tenderness, No Hepatosplenomegaly, No Masses Extremities: No Clubbing, No Cyanosis, No Edema, Normal Pulses, No Tenderness/Swelling Skin: No Rashes, No Breakdown, No Significant Lesion Neuro: Normal Gait, Normal Speech, Strength at 5/5 X4 Ext, Normal Tone, Sensation Intact Psych/Mental Status: Mental Status NL, Mood NL Results Labs Labs Laboratory Tests 08/23/20 21:18: White Blood Count 18.1H, Red Blood Count 4.11, Hemoglobin 13.6, Hematocrit 41, Mean Corpuscular Volume 99, Mean Corpuscular Hemoglobin 33, Mean Corpuscular Hemoglobin Concent 34, Red Cell Distribution Width 12.4, Platelet Count 304, Mean Platelet Volume 8.8L, Immature Granulocyte % (Auto) 1, Neutrophils (%) (Auto) 82H, Lymphocytes (%) (Auto) 13, Monocytes (%) (Auto) 5, Eosinophils (%) (Auto) 0, Basophils (%) (Auto) 0, Neutrophils # (Auto) 14.8H, Lymphocytes # (Auto) 2.3, Monocytes # (Auto) 0.9, Eosinophils # (Auto) 0.1, Basophils # (Auto) 0.0, Immature Granulocyte # (Auto) 0.1, Neutrophils % (Manual) 82, Lymphocytes % (Manual) 9, Monocytes % (Manual) 4, Eosinophils % (Manual) 0, Basophils % (Manual) 0, Band Neutrophils 2, Reactive Lymphocytes 3, Blood Morphology Comment NORMAL, Prothrombin Time 13.2, INR Comment 1.0, Activated Partial Thromboplast Time 25, Sodium Level 138, Potassium Level 3.3L, Chloride Level 101, Carbon Dioxide Level 23, Anion Gap 14, Blood Urea Nitrogen 13, Creatinine 0.95, Estimat Glomerular Filtration Rate 60, BUN/Creatinine Ratio 14, Glucose Level 168H, Calcium Level 8.8, Corrected Calcium 8.7, Magnesium Level 1.8, Total Bilirubin 0.5, Aspartate Amino Transf (AST/SGOT) 38H, Alanine Aminotransferase (ALT/SGPT) 27, Alkaline Phosphatase 99, Total Creatine Kinase 105, Creatine Kinase MB 3.1, Myoglobin 75.3, Troponin I < 0.028, B-Type Natriuretic Peptide 25.9, Total Protein 6.8, Albumin 4.1, Amylase Level 33, Lipase 16, Serum Alcohol < 10 08/23/20 21:25: Coronavirus 2019 (DANIS) Negative A/P-Cardiology Admission Diagnosis Acute ST elevation myocardial infarction Coronary artery disease Hypotensive shock Congestive heart failure Admission Status: Inpatient Order (span 2 midnights) Reason for Inpatient Admission: Acute ST elevation myocardial infarction Assessment/Plan Acute ST elevation myocardial infarction the inferior wall, given aspirin and Plavix and heparin in the emergency room, taken for emergency cardiac catheterization which showed occlusion of the right coronary artery. Coronary artery disease status post emergency cardiac catheterization with stenting of the right coronary artery using 2.5 x 23 mm Mirella stent expanded to 3.0 with excellent results, door to balloon time was 54 minutes, continue aspirin and Plavix Hypotensive shock secondary to inferior wall myocardial infarction, responded to IV fluid. Continue to monitor Congestive heart failure, inferior wall hypokinesia, ejection fraction 50 percent, acute left ventricular systolic dysfunction and ischemic cardiomyopathy. Planning to start low-dose beta blockers and ARB if she can tolerate it Bronchial asthma, active wheezing on bronchodilators Hyperlipidemia, evaluate lipid profile, started on Lipitor 80 mg empirically Tobaccoism, educated on smoking cessation Hiatal hernia, gastric polyp Clinical Quality Measures AMI/AHF: ASA po Prior to arrival: Yes ([address]) SHAHID DELONG MD Aug 23, 2020 10:32 pm
--- NOTE | 2020-08-23 22:33 | Cardiac Procedure Note-CS/ASA ---
Pre-Procedure Note Pre-Op Procedure Note H&P Reviewed The H&P was reviewed, patient examined and no changes noted. Date H&P Reviewed: Aug 23, 2020 Time H&P Reviewed: 09:30 Conscious Sedation Pre-Proced Time 09:30 ASA Score 3 For ASA 3 and 4: Consider anesthesia and medical clearance. Also, for patients with a history of failed moderate sedation consider anesthesia. Airway Lungs Heart ASA score ASA 1: a normal healthy patient ASA 2: a patient with a mild systemic disease (mid diabetes, controlled hypertension, obesity x ASA 3: a patient with a severe systemic disease that limits activity (angina, COPD, prior Myocardial infarction) ASA 4: a patient with an incapacitating disease that is a constant threat to life (CHF, renal failure) ASA 5: a moribund patient not expected to survive 24 hrs. (ruptured aneurysm) ASA 6: a declared brain- patient whose organs are being harvested. For emergent operations, add the letter E after the classification Mallampati Classification Grade 3 Sedation Plan Analgesia, Amnesia, Plan communicated to team members, Discussed options with patient/fam, Discussed risks with patient/fam The patient is an appropriate candidate to undergo the planned procedure, sedation, and anesthesia. The patient immediately re-assessed prior to indication. SHAHID DELONG MD Aug 23, 2020 10:32 pm
--- NOTE | 2020-08-23 22:42 | Cardiac Cath Report ---
Cardiac Cath Report Physician (s)/Flight Line Mechanic (s) Physician SHAHID DELONG MD Pre-Procedure Diagnosis Pre-Procedure Diagnosis: acute ST elevation myocardial infarction Post-Procedure Note Procedure Start Date: Aug 23, 2020 Name of Procedure: Left heart catheterization Stenting to the right coronary artery Findings/Procedure Note PROCEDURE NOTE: 60 years old lady with no significant cardiac history admitted with acute ST elevation myocardial infarction the inferior wall, emergency cardiac catheterization was planned. After explaining the procedure to the patient, all pros and cons were explained, all questions were answered. The patient signed the consent and then she was placed on the cardiac catheterization laboratory. Groin was prepped SL fashion local anesthesia was used. Sheath placed in the right femoral artery. Ese right and left catheter were used to access the coronary system. Pigtail was used to access the left ventricular cavity. Left ventriculogram was done Patient received 5000 units of heparin in the emergency room, she received double bolus of Integrilin during the procedure, no Integrilin drip. If our guide was advanced to the right coronary system, attempt to cross the total oc clusion with BMW wire has failed, I used a whisper extra support wire advanced it distally then predilated with 2.5 x 20 mm trek, door to balloon time with establishment of flow was 54 minutes, proceeded with a Mirella stent 2.5 x 23 mm positioned carefully and deployed at 16 brenda, there was some residual stenosis, noncompliant 3.0 x 50 mm balloon was used under 12 brenda expanded the stent to 3.0 mm with excellent results no residual stenosis with KYUNG-3 flow At the end of the procedure the sheath was removed. Closure device was deployed FINDINGS: Hemodynamics LV 111/29, end-diastolic pressure 29 Aorta 108/77 mean of 93 ANATOMY: Left Main is free of obstructive disease Left Anterior Descending is slightly tortuous with nonobstructive disease Left Circumflex is slightly tortuous with nonobstructive disease Right Coronory Artery has a ruptured plaque and thrombus proximally successful balloon angioplasty then deployment of Mirella 2.5 x 23 mm stent expanded to 3.0 mm with excellent results LV Gram was done showing normal left ventricular size, akinesia of the apical inferior wall, ejection fraction 50 percent, elevated left ventricular end- diastolic pressure CONCLUSION: 1. Acute ST elevation inferior wall myocardial infarction with emergency cardiac catheterization and stenting door to balloon time 54 minutes 2. Total occlusion of the right coronary artery with balloon angioplasty then deployment of Mirella 2.5 x 23 mm expanded to 3.0 mm with excellent results with no residual stenosis 3. Tortuous left coronary system with nonobstructive disease 4. Akinesia of the apical segment of the inferior wall with preserved systolic function estimated ejection fraction 50 percent, elevated left ventricular end- diastolic pressure DISCUSSION AND RECOMMENDATION: Show was started on aspirin and Plavix, maximize medical therapy. Anesthesia Type: Conscious Sedation Estimated blood loss (mL): 35 ml Contrast Amount: 100 ml Total Radiation Dose: 219 mGy Post-Procedure Diagnosis Post-operative diagnosis: Acute ST elevation myocardial infarctions Coronary artery disease Hyperlipidemia Hypotension SHAHID DELONG MD Aug 23, 2020 10:42 pm
[2020-08-23] MEDS ORDERED: PATIENT MAY USE OWN MEDS, ALL PO SCH (22:45)
[2020-08-23] MEDS: NS IV 1000 ML 1,000 ML IV SCH (22:45)
[2020-08-23] MEDS ORDERED: PANTOPRAZOLE 40 MG (PROTONIX) TAB PO ONE (22:45)
--- NOTE | 2020-08-23 22:48 | NUR ---
REPORT TO [facility] ICU.
[2020-08-24 00:04] VITALS: BP 129/89
[2020-08-24] MEDS ORDERED: RT-ALBUTEROL SULF 2.5 MG/3 ML PRE-MIX VIAL INH SCH (03:00)
--- NOTE | 2020-08-24 03:15 | NUR ---
PT TAKEN OFF BED REST. SITTING IN BED WATCHING TV WITH NO NEW COMPLAINTS AT THIS TIME. WILL CONTINUE TO MONITOR SURGICAL SITE AND ADVANCE ACTIVITY TOLERATED.
[2020-08-24 04:23] LABS: BASOPHILS % (AUTO) 0 % (0-10); EOSINOPHILS % (AUTO) 0 % (0-10); HEMATOCRIT 40 % (35-52); HEMOGLOBIN 12.9 g/dL (11.5-16.0); LYMPHOCYTES # (AUTO) 1.3 10^3/uL (1.0-4.0); LYMPHOCYTES % (AUTO) 15 % (12-44); MEAN CORPUSCULAR HEMOGLOBIN 33 pg (25-34); MEAN CORPUSCULAR HGB CONC 33 g/dL (32-36); MEAN CORPUSCULAR VOLUME 100 fL (80-99); MONOCYTES # (AUTO) 0.7 10^3/uL (0.0-1.0); MONOCYTES % (AUTO) 8 % (0-12); NEUTROPHILS # (AUTO) 6.5 10^3/uL (1.8-7.8); NEUTROPHILS % (AUTO) 77 % (42-75); PLATELET COUNT 272 10^3/uL (130-400); WHITE BLOOD COUNT 8.5 10^3/uL (4.3-11.0)
[2020-08-24 04:33] LABS: CHLORIDE 103 MMOL/L (98-107); POTASSIUM 4.2 MMOL/L (3.6-5.0); SODIUM 136 MMOL/L (135-145)
[2020-08-24 04:34] LABS: CALCIUM 8.4 MG/DL (8.5-10.1)
[2020-08-24 04:35] LABS: GLUCOSE 114 MG/DL (70-105); TRIGLYCERIDES 89 MG/DL (<150); VLDL CHOLESTEROL 18 MG/DL (5-40)
[2020-08-24 04:36] LABS: CARBON DIOXIDE 21 MMOL/L (21-32)
[2020-08-24 04:38] LABS: PHOSPHORUS 5.4 MG/DL (2.3-4.7)
[2020-08-24 04:39] LABS: CREATININE SERUM 0.82 MG/DL (0.60-1.30); GFR ESTIMATED > 60
[2020-08-24 04:40] LABS: BUN/CREATININE RATIO 18; CHOLESTEROL 130 MG/DL (< 200)
[2020-08-24 04:41] LABS: HDL CHOLESTEROL 53 MG/DL (40-60); MAGNESIUM 1.9 MG/DL (1.6-2.4)
--- NOTE | 2020-08-24 05:39 | NUR ---
PT REMAINS STABLE AT THIS TIME. STATES SHE IS VERY TIRED, THIS RN HELPED PT MOVE TO R SIDE TO GET SOME MORE REST. PT ASKED IF SHE COULD GET MORE SLEEP BEFORE GETTING UP TO WALK.
[2020-08-24] MEDS ORDERED: methylPREDNISolone 125 MG (Solu-MEDROL) VIAL IVP ONE (06:30)
--- NOTE | 2020-08-24 06:35 | Pulmonary Consultation ---
History of Present Illness History of Present Illness Date Seen by Provider: Aug 24, 2020 Time Seen by Provider: 06:30 Date of Admission Reason for Visit: chest pain History of Present Illness 60yo with hx of COPD, and asthma presented to ED via EMS secondary to left sided acute CP 05/04 with radiation to left arm. Pt found to have acute STEMI and is now s/p heart cath with balloon angioplasty. Pt is very wheezy. She denies current SOB or CP. She states she is always wheezy. Denies hx of heart dx. Allergies and Home Medications Allergies Coded Allergies: albuterol (Unverified Allergy, Unknown, 03/20/19) aspirin (Unverified Allergy, Unknown, 03/20/19) ciprofloxacin (Unverified Allergy, Unknown, 03/20/19) clindamycin (Unverified Allergy, Unknown, 03/20/19) levofloxacin (Unverified Allergy, Unknown, 03/20/19) Uncoded Allergies: ANTIBIOTIC (Allergy, Unknown, 09/30/17) Home Medications Albuterol Sulfate 2.5 Mg/3 Ml Vial.neb, 2.5 MG INH DAILY, (Reported) Albuterol Sulfate 1 Puff Puff, 2 PUFF IH Q6H PRN for SHORTNESS OF BREATH, (Reported) 1 PUFF = 90 MCG Azithromycin 250 Mg Tablet, 250 MG PO DAILY Prescribed by: ARON WRIGHT on 09/30/171931 Benzonatate 100 Mg Capsule, 200 MG PO TID, (Reported) Buspirone HCl 15 Mg Tablet, 15 MG PO DAILY, (Reported) Cephalexin 500 Mg Capsule, 500 MG PO QID, (Reported) Clonazepam 0.5 Mg Tablet, 0.5 MG PO BID, (Reported) Fluoxetine HCl 20 Mg Capsule, 40 MG PO DAILY, (Reported) Fluoxetine HCl 40 Mg Capsule, 40 MG PO DAILY, (Reported) Hydrochlorothiazide 12.5 Mg Capsule, 12.5 MG PO DAILY, (Reported) Ibuprofen 200 Mg Tablet, 200 MG PO PRN, (Reported) Pantoprazole Sodium 40 Mg Tablet.dr, 40 MG PO DAILY, (Reported) Polyethylene Glycol 3350 17 Gm Powd.pack, 17 GM PO PRN, (Reported) Tiotropium [place] 1 Inh Aerp, 18 INH IH DAILY, (Reported) [Spiriva] , 18 MCG PO DAILY, (Reported) Past Cquotlk-Qpbkic-Dpdphn Hx Past Med/Social Hx: Reviewed and Corrections made Patient Social History Alcohol Use: Denies Use Drug of Choice: DENIES Smoking Status: Current Everyday Smoker (1 PPD) Type Used: Cigarettes 2nd Hand Smoke Exposure: Yes Recent Infectious Disease Expo: No Recent Hopitalizations: No Seasonal Allergies Seasonal Allergies: No Past Medical History Surgeries: Yes Gallbladder, Hysterectomy, Oophorectomy Respiratory: Yes (O2 PRNL; LUNG CANCER--TX WITH RADIATION) COPD Cardiac: Yes High Cholesterol 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 0.0oz. 56.574963qw; 22.31 BMI Method:Stated Exam Exam Vital Signs Date Time Temp Pulse Resp B/P (MAP) Pulse Ox O2 Delivery O2 Flow Rate FiO2 08/24/20 01:28 95 Nasal Cannula 3.00 08/24/20 01:00 105 08/24/20 00:04 37.0 101 99 08/23/20 23:06 114 08/23/20 22:48 109 12 116/85 (95) 92 Nasal Cannula 3.00 08/23/20 21:45 101 16 129/89 (100) 99 Nasal Cannula 2.00 08/23/20 21:08 Nasal Cannula 2.0 08/23/20 21:08 113 20 129/85 (100) 96 Nasal Cannula 2.0 08/23/20 21:08 Nasal Cannula 2.00 I & O 08/24/20 07:00 Intake Total 250 ml Output Total 0 ml Balance 250 ml Height & Weight Height: 5'1.00" Weight: 125lbs. 0.0oz. 56.719617ch; 22.31 BMI Method:Stated General Appearance: WD/WN, Anxious, Mild Distress (DYSPNEIC) HEENT: PERRL/EOMI Neck: Full Range of Motion, Normal Inspection, Non Tender, Supple; No Carotid Bruit, No JVD Respiratory: Chest Non Tender, Accessory Muscle Use, Wheezing (DIFFUSE WHEEZING BILATERALLY--LEFT > RIGHT. MILD TO MODERATE DYSPNEA, PT STATES IS NORMAL FOR HER. ) Cardiovascular: Regular Rate, Rhythm, No Edema, No JVD, No Murmur, Normal Peripheral Pulses Capillary Refill: Less Than 3 Seconds Extremity: Normal Capillary Refill, Normal Inspection, Normal Range of Motion, Non Tender, No Calf Tenderness, No Pedal Edema Neurologic/Psychiatric: Alert, Oriented x3, No Motor/Sensory Deficits, brass wind instruments tube bender II- XII Norm as Tested Skin: Normal Color, Warm/Dry; No Diaphoresis Results Lab Laboratory Tests 08/23/20 21:18 08/24/20 03:57 Assessment/Plan Assessment/Plan STEMI s/p heart cath with balloon angioplasty -Cardiology is following COPDAE/AsthmaAE -Change albuterol to Duoneb Q 4 -add advair -Give 125mg of solumedrol x 1 then 40 Q 6 Tobacco dependance -Education LISSY DIAS DO Aug 24, 2020 06:35
[2020-08-24] MEDS ORDERED: ADVAIR HFA 115/21 MCG INHALER 8 GM IH SCH (08:00)
[2020-08-24] MEDS: PANTOPRAZOLE 40 MG (PROTONIX) TAB PO SCH (08:12)
[2020-08-24] MEDS: ASPIRIN E.C. 81 MG (ECOTRIN) TAB PO SCH (08:12)
[2020-08-24] MEDS: CLOPIDOGREL 75 MG (PLAVIX) TABLET PO SCH (08:13)
[2020-08-24] MEDS: NS IV 1000 ML 1,000 ML IV SCH ×2 (08:13→18:10)
[2020-08-24] MEDS ORDERED: ALBUTEROL/IPRATROP (COMBIVENT RESPIMAT) 4 GM INHALER IH ONE (09:00)
--- NOTE | 2020-08-24 09:08 | Cardiology Progress Note ---
Subjective Date Seen by Provider: Aug 24, 2020 Time Seen by Provider: 09:06 Subjective/Events-last exam Patient is laying down in bed, feeling better, denied any chest pain, still actively wheezing Review of Systems General: No Chills, No Night Sweats, No Fatigue, No Malaise, No Appetite, No Other HEENT: No Head Aches, No Visual Changes, No Eye Pain, No Ear Pain, No Dysphasia, No Sinus Congestion, No Post Nasal Drip, No Sore Throat, No Other Pulmonary: Dyspnea; No Cough, No Pleuritic Chest Pain, No Other Cardiovascular: No: Chest Pain, Palpitations, Orthopnea, Paroxysmal Noc. Dyspnea, Edema, Lt Headedness, Other Objective-Cardiology Exam Last Set of Vital Signs Vital Signs 08/24/20 08/24/20 07:20 08:00 Temp 35.6 Pulse 97 Resp 13 B/P (MAP) 116/86 (96) Pulse Ox 93 O2 Delivery Nasal Cannula O2 Flow Rate 3.00 Capillary Refill : Less Than 3 Seconds I&O Intake and Output 08/24/20 00:00 Daily Weight Change No General: Alert, Oriented X3, Cooperative, No Acute Distress HEENT: Atraumatic, PERRLA Lungs: Normal Air Movement, Other (wheezing) Heart: Regular Rate, Normal S1, Normal S2, No Murmurs Abdomen: Normal Bowel Sounds, Soft, No Tenderness, No Hepatosplenomegaly, No Masses Extremities: No Clubbing, No Cyanosis, No Edema, Normal Pulses, No Tenderness/Swelling Skin: No Rashes, No Breakdown, No Significant Lesion Neuro: Normal Gait, Normal Speech, Strength at 5/5 X4 Ext, Normal Tone, Sensation Intact Psych/Mental Status: Mental Status NL, Mood NL Results Lab Laboratory Tests 08/23/20 21:18 08/24/20 03:57 A/P-Cardiology Admission Diagnosis Acute ST elevation myocardial infarction Coronary artery disease Hypotensive shock Congestive heart failure Assessment/Plan Aspirin. Acute ST elevation myocardial infarction the inferior wall with emergency cardiac catheterization and stenting to the right coronary artery, recovering well. Coronary artery disease status post emergency cardiac catheterization with stenting of the right coronary artery using 2.5 x 23 mm Mirella stent expanded to 3.0 with excellent results, door to balloon time was 54 minutes, continue aspirin and Plavix Hypotensive shock secondary to inferior wall myocardial infarction, recovered, blood pressure is better at this time. Continue to monitor Congestive heart failure, inferior wall hypokinesia, ejection fraction 50 percent, acute left ventricular systolic dysfunction and ischemic cardiomyopathy. Started on Toprol 25 mg daily, planning to add losartan 25 mg daily, monitor tolerance and response Bronchial asthma, active wheezing on bronchodilators, she had Dr. Carrillo's input. Total cholesterol 130, LDL 63, she was started on Lipitor 80 mg empirically, I'll decrease the dose to 10 mg daily Tobaccoism, educated on smoking cessation Hiatal hernia, gastric polyp Clinical Quality Measures AMI/AHF: ASA po Prior to arrival: Yes ([address]) SHAHID DELONG MD Aug 24, 2020 09:08
[2020-08-24] MEDS: ENOXAPARIN 40 MG/0.4 ML (LOVENOX) SYR SQ SCH (09:42)
[2020-08-24] MEDS: RT-ALBUTEROL/IPRATROPIUM 3 ML (DUONEB) VIAL INH SCH ×4 (11:22→22:00)
[2020-08-24] MEDS: ADVAIR HFA 115/21 MCG INHALER 8 GM IH SCH ×2 (11:22→18:54)
[2020-08-24] MEDS: methylPREDNISolone 40 MG/ML (Solu-MEDROL) VIAL IV SCH ×2 (12:55→18:08)
--- NOTE | 2020-08-24 12:58 | Consultation - Hospitalist ---
HPI History of Present Illness: HPI/Chief Complaint CC: STEMI HPI: This is a [facility] patient who presented to the ER with STEMI. Dr Reyes performed cath with stent placement in RCA. Patient does smoke and we talked about that. Inhalers are used at home. O2 used prn. Source: patient, old records Exam Limitations: no limitations Date Seen 08/24/20 Attending Physician Martha Reyes MD PCP Kyaw Nguyen MD Referring Physician Date of Admission Home Medications & Allergies Home Medications Reviewed patient Home Medication Reconciliation performed by pharmacy medication reconciliations budget technician and/or nursing. Patients Allergies have been reviewed. Allergies Allergies Coded Allergies albuterol (Unverified Allergy, Unknown, 03/20/19) aspirin (Unverified Allergy, Unknown, 03/20/19) ciprofloxacin (Unverified Allergy, Unknown, 03/20/19) clindamycin (Unverified Allergy, Unknown, 03/20/19) levofloxacin (Unverified Allergy, Unknown, 03/20/19) Uncoded Allergies ANTIBIOTIC ( Allergy, Unknown, 09/30/17) Past Fwegckp-Uyypfw-Abngsd Hx Past Med/Social Hx: Reviewed Nursing Past Med/Soc Hx, Reviewed and Corrections made Patient Social History Marrital Status: Employed/Student: employed Alcohol Use: Denies Use Recreational Drug Use: No Drug of Choice: DENIES Smoking Status: Current Everyday Smoker (1 PPD) Type Used: Cigarettes 2nd Hand Smoke Exposure: Yes Recent Foreign Travel: No Contact w/other who traveled: No Recent Hopitalizations: No Recent Infectious Disease Expo: No Seasonal Allergies Seasonal Allergies: No Past Medical History Surgeries: Gallbladder, Hysterectomy, Oophorectomy Cardiac: Coronary Artery Disease (stent RCA STEMI 08/23/20), High Cholesterol Hysterectomy, Menopausal Gastrointestinal: Gall Bladder Disease Musculoskeletal: Fibromyalgia Psychosocial: Anxiety History of Blood Disorders: No Adverse Reaction to Blood Acevedo: No Review of Systems Constitutional: see HPI Cardiovascular: chest pain Physical Exam Physical Exam Vital Signs Vital Signs - First Documented 08/24/20 00:04 Temp 37.0 Capillary Refill : Less Than 3 Seconds Height, Weight, BMI Height: 5'1.00" Weight: 125lbs. 0.0oz. 56.616446is; 22.31 BMI Method:Stated General Appearance: WD/WN, Anxious, Chronically ill, Mild Distress (DYSPNEIC) Eyes: Bilateral Eye Normal Inspection, Bilateral Eye PERRL HEENT: PERRL/EOMI Neck: Full Range of Motion, Normal Inspection, Non Tender, Supple; No Carotid Bruit, No JVD Respiratory: Chest Non Tender, Accessory Muscle Use, Wheezing (DIFFUSE WHEEZING BILATERALLY--LEFT > RIGHT. MILD TO MODERATE DYSPNEA, PT STATES IS NORMAL FOR HER. ) Cardiovascular: Regular Rate, Rhythm, No Edema, No JVD, No Murmur, Normal Peripheral Pulses Gastrointestinal: No Pulsatile Mass, Non Tender, Soft Back: Normal Inspection, No CVA Tenderness, No Vertebral Tenderness Extremity: Normal Capillary Refill, Normal Inspection, Normal Range of Motion, Non Tender, No Calf Tenderness, No Pedal Edema Neurologic/Psychiatric: Alert, Oriented x3, No Motor/Sensory Deficits, vascular manager II- XII Norm as Tested Skin: Normal Color, Warm/Dry; No Diaphoresis Lymphatic: No Adenopathy Results Results/Procedures Labs Laboratory Tests 08/23/20 21:18 08/24/20 03:57 08/25/20 02:37 Patient resulted labs reviewed. Assessment/Plan Assessment and Plan Assess & Plan/Chief Complaint Assessment: STEMI s/p emergent cath with stent RCA Smoker COPD Hypoxia uses O2 at home HLP Plan: O2 MDI Monitor closely Clinical Quality Measures AMI/AHF: ASA po Prior to arrival: Yes ([address]) CYNDI MOLINA DO Aug 24, 2020 12:58
[2020-08-25] MEDS: methylPREDNISolone 40 MG/ML (Solu-MEDROL) VIAL IV SCH (00:08)
[2020-08-25] MEDS: RT-ALBUTEROL/IPRATROPIUM 3 ML (DUONEB) VIAL INH SCH ×3 (01:45→09:39)
[2020-08-25 03:03] LABS: BASOPHILS % (AUTO) 0 % (0-10); EOSINOPHILS % (AUTO) 0 % (0-10); HEMATOCRIT 35 % (35-52); HEMOGLOBIN 11.5 g/dL (11.5-16.0); LYMPHOCYTES # (AUTO) 0.3 10^3/uL (1.0-4.0); LYMPHOCYTES % (AUTO) 4 % (12-44); MEAN CORPUSCULAR HEMOGLOBIN 33 pg (25-34); MEAN CORPUSCULAR HGB CONC 33 g/dL (32-36); MEAN CORPUSCULAR VOLUME 99 fL (80-99); MEAN PLATELET VOLUME 9.1 fL (9.0-12.2); MONOCYTES # (AUTO) 0.1 10^3/uL (0.0-1.0); MONOCYTES % (AUTO) 2 % (0-12); NEUTROPHILS # (AUTO) 8.3 10^3/uL (1.8-7.8); NEUTROPHILS % (AUTO) 94 % (42-75); PLATELET COUNT 233 10^3/uL (130-400); WHITE BLOOD COUNT 8.8 10^3/uL (4.3-11.0)
[2020-08-25 03:37] LABS: ALBUMIN 3.8 GM/DL (3.2-4.5)
[2020-08-25 03:38] LABS: CHLORIDE 103 MMOL/L (98-107); POTASSIUM 4.1 MMOL/L (3.6-5.0); SODIUM 136 MMOL/L (135-145)
[2020-08-25 03:39] LABS: CALCIUM 8.5 MG/DL (8.5-10.1); MAGNESIUM 1.9 MG/DL (1.6-2.4)
[2020-08-25 03:40] LABS: GLUCOSE 132 MG/DL (70-105); TOTAL PROTEIN 6.2 GM/DL (6.4-8.2)
[2020-08-25 03:41] LABS: CARBON DIOXIDE 21 MMOL/L (21-32)
[2020-08-25 03:42] LABS: BILIRUBIN,TOTAL 0.3 MG/DL (0.1-1.0)
[2020-08-25 03:43] LABS: ALKALINE PHOSPHATASE 86 U/L (40-136); PHOSPHORUS 3.3 MG/DL (2.3-4.7)
[2020-08-25 03:44] LABS: CREATININE SERUM 0.71 MG/DL (0.60-1.30); GFR ESTIMATED > 60
[2020-08-25 03:45] LABS: BUN/CREATININE RATIO 20
[2020-08-25 03:47] LABS: ALANINE AMINOTRANSFERASE 28 U/L (0-55)
[2020-08-25] MEDS: NS IV 1000 ML 1,000 ML IV SCH (04:45)
--- NOTE | 2020-08-25 04:59 | Pulmonary Progress Note ---
Subjective Time Seen by a Provider: 04:56 Subjective/Events-last exam Pt is doing better. Sepsis Event Evaluation Height, Weight, BMI Height: 5'1.00" Weight: 125lbs. 0.0oz. 56.944130ah; 22.31 BMI Method:Stated Exam Exam Vital Signs Date Time Temp Pulse Resp B/P (MAP) Pulse Ox O2 Delivery O2 Flow Rate FiO2 08/25/20 01:44 94 Nasal Cannula 3.00 08/25/20 00:00 94 16 130/88 (102) 96 Nasal Cannula 3.00 08/24/20 22:00 93 Nasal Cannula 3.00 08/24/20 21:00 Room Air 08/24/20 20:00 92 12 123/81 (95) 96 Nasal Cannula 3.00 08/24/20 19:00 90 08/24/20 18:54 92 Nasal Cannula 3.00 08/24/20 16:40 36.2 98 16 123/106 (112) 90 Nasal Cannula 3.00 08/24/20 14:33 92 Nasal Cannula 1.00 08/24/20 12:38 92 08/24/20 11:34 36.9 92 14 102/67 (79) 92 Nasal Cannula 1.00 08/24/20 11:22 92 Nasal Cannula 1.00 08/24/20 09:00 Room Air 08/24/20 08:00 97 13 116/86 (96) 93 Nasal Cannula 3.00 08/24/20 07:20 35.6 08/24/20 07:00 107 08/24/20 07:00 107 16 115/68 (84) 95 Nasal Cannula 3.00 08/24/20 06:00 101 14 94/62 (73) 95 Nasal Cannula 3.00 08/24/20 05:00 101 14 115/84 (94) 95 Nasal Cannula 3.00 I & O 08/25/20 07:00 Intake Total 2088 ml Balance 2088 ml Height & Weight Height: 5'1.00" Weight: 125lbs. 0.0oz. 56.032166lp; 22.31 BMI Method:Stated General Appearance: WD/WN, Anxious, Mild Distress (DYSPNEIC) HEENT: PERRL/EOMI Neck: Full Range of Motion, Normal Inspection, Non Tender, Supple; No Carotid Bruit, No JVD Respiratory: Chest Non Tender, Accessory Muscle Use, Wheezing Cardiovascular: Regular Rate, Rhythm, No Edema, No JVD, No Murmur, Normal Peripheral Pulses Capillary Refill: Less Than 3 Seconds Extremity: Normal Capillary Refill, Normal Inspection, Normal Range of Motion, Non Tender, No Calf Tenderness, No Pedal Edema Neurologic/Psychiatric: Alert, Oriented x3, No Motor/Sensory Deficits, scaleman II- XII Norm as Tested Skin: Normal Color, Warm/Dry; No Diaphoresis Results Lab Laboratory Tests 08/23/20 21:18 08/24/20 03:57 08/25/20 02:37 Assessment/Plan Assessment/Plan STEMI s/p heart cath with balloon angioplasty -Cardiology is following COPDAE/AsthmaAE - Duoneb Q 4 - advair -solumedrol x 1 then 40 Q 6 -Change to prednisone taper. Tobacco dependance -Education Probable home today with prednisone taper. LISSY DIAS DO Aug 25, 2020 04:59
[2020-08-25] MEDS: PANTOPRAZOLE 40 MG (PROTONIX) TAB PO SCH (08:49)
[2020-08-25] MEDS: ASPIRIN E.C. 81 MG (ECOTRIN) TAB PO SCH (08:49)
[2020-08-25] MEDS: CLOPIDOGREL 75 MG (PLAVIX) TABLET PO SCH (08:49)
[2020-08-25] MEDS ORDERED: predniSONE 10 MG TAB PO SCH (09:00)
[2020-08-25] MEDS: ADVAIR HFA 115/21 MCG INHALER 8 GM IH SCH (09:39)
[2020-08-25] MEDS: ENOXAPARIN 40 MG/0.4 ML (LOVENOX) SYR SQ SCH (10:00)
[2020-08-25] MEDS ORDERED: CLOP75TA28 PO (10:41)
[2020-08-25] MEDS ORDERED: ATOR10TA66 PO (10:41)
[2020-08-25] MEDS ORDERED: ASPI-1238 PO (10:41)
[2020-08-25] MEDS ORDERED: PRD10T PO (10:41)
[2020-08-25] MEDS ORDERED: MTP25TSR PO (10:41)
--- NOTE | 2020-08-25 10:41 | Discharge Inst-Post CATH ---
Discharge Inst-CATH/EP Problems Reviewed?: Yes Post Cardiac Cath/EP D/C Inst Follow Up/Plan Appointment with Dr. Hurd's office in one to [address] DELONG's office in one to 2 weeks <b>CARDIAC CATH/EP PROCEDURE DISCHARGE INSTRUCTIONS</b> ACTIVITY * Go Home directly and rest. * Limit activity of the leg (or wrist if it was used) for 7 days including aerobics, swimming, jogging, bicycling, etc. * Restrict stair-climbing for 7 days if possible, if not, climb up with your non-cath leg, then bring together on the same step. * Avoid lifting, pushing, pulling or excessive movement of the affected extremity for 7 days. * Customary sexual activity may be resumed after 2 days-use caution not to use a position that strains or causes pain to the affected extremity. * No driving for 24 hours. * NO SMOKING. * Avoid straining for bowel movements for 7 days. * Gentle walking on level ground is allowed. * Returning to work will depend on the type of procedure and the results. Your doctor will discuss this with you. CALL YOUR DOCTOR FOR ANY OF THE FOLLOWING: *If bleeding from the puncture site occurs- Apply gentle pressure to site with clean cloth and call your doctor or EMS. * If a knot or lump forms under the skin, increases in size, or causes pain. * If bruising appears to be worsening or moving further down your leg instead of disappearing. * Temperature above 101 F. CARE OF YOUR GROIN INCISION; * Bruising or purple discoloration of the skin near the puncture site is common. * You may shower only, no bathtub bathing for 5 days. Be careful to avoid slipping as your leg may feel stiff. * If a closure device was used on your femoral artery, please see the attached guide regarding care of the device and your leg. * Leave dressing on FOR 24 hours. CARE OF YOUR WRIST INCISION; * Bruising or purple discoloration of the skin near the puncture site is common. * You may shower. * DO NOT submerge wrist. * Leave dressing on FOR 24 hours. SHAHID DELONG MD Aug 25, 2020 10:41 am
[2020-08-25] MEDS ORDERED: LOSA25TA41 PO (10:46)
--- NOTE | 2020-08-25 10:47 | Cardiology Discharge Summary ---
Discharge Summary Hospital Course Problems Reviewed?: Yes Hospital Course Date of Admission: Admission Diagnosis : Family Physician/Provider: Howard Brady Date of Discharge: 08/25/20 Discharge Diagnosis: [Acute ST elevation myocardial infarctions Coronary artery disease Bronchial asthma Congestive heart failure, acute left ventricular systolic dysfunction, ischemic cardiomyopathy ] Hospital Course: [ Acute ST elevation myocardial infarction the inferior wall with emergency car diac catheterization and stenting to the right coronary artery, recovering well. Coronary artery disease status post emergency cardiac catheterization with stenting of the right coronary artery using 2.5 x 23 mm Mirella stent expanded to 3.0 with excellent results, door to balloon time was 54 minutes, continue aspirin and Plavix Hypotensive shock secondary to inferior wall myocardial infarction, recovered, blood pressure is better at this time. Congestive heart failure, inferior wall hypokinesia, ejection fraction 50 percent, acute left ventricular systolic dysfunction and ischemic cardiomyopathy. Started on Toprol 25 mg daily, I will add losartan 25 mg daily Bronchial asthma, active wheezing on bronchodilators, started on steroids, will continue with prednisone taper pack and she will follow-up with Dr. Hurd as an outpatient Total cholesterol 130, LDL 63, she was started on Lipitor 80 mg empirically, I'll decrease the dose to 10 mg daily Tobaccoism, educated on smoking cessation Hiatal hernia, gastric polyp] Labs and Pending Lab Test: Laboratory Tests 08/25/20 02:37: White Blood Count 8.8, Red Blood Count 3.52L, Hemoglobin 11.5, Hematocrit 35, Mean Corpuscular Volume 99, Mean Corpuscular Hemoglobin 33, Mean Corpuscular Hemoglobin Concent 33, Red Cell Distribution Width 12.2, Platelet Count 233, Mean Platelet Volume 9.1, Immature Granulocyte % (Auto) 1, Neutrophils (%) (Auto) 94H, Lymphocytes (%) (Auto) 4L, Monocytes (%) (Auto) 2, Eosinophils (%) (Auto) 0, Basophils (%) (Auto) 0, Neutrophils # (Auto) 8.3H, Lymphocytes # (Auto) 0.3L, Monocytes # (Auto) 0.1, Eosinophils # (Auto) 0.0, Basophils # (A uto) 0.0, Immature Granulocyte # (Auto) 0.0, Sodium Level 136, Potassium Level 4.1, Chloride Level 103, Carbon Dioxide Level 21, Anion Gap 12, Blood Urea Nitrogen 14, Creatinine 0.71, Estimat Glomerular Filtration Rate > 60, BUN/Creatinine Ratio 20, Glucose Level 132H, Calcium Level 8.5, Corrected Calcium 8.7, Phosphorus Level 3.3, Magnesium Level 1.9, Total Bilirubin 0.3, Aspartate Amino Transf (AST/SGOT) 44H, Alanine Aminotransferase (ALT/SGPT) 28, Alkaline Phosphatase 86, Total Protein 6.2L, Albumin 3.8 Microbiology 08/23/20 MRSA Screen - Final, Complete MRSA not isolated Home Meds Active Aspirin EC (Aspirin) 81 Mg Tablet.dr 81 Mg PO DAILY Metoprolol Succinate 25 Mg Tab.er.24h 25 Mg PO DAILY Atorvastatin Calcium 10 Mg Tablet 10 Mg PO HS Prednisone 10 Mg Tab 60 Mg PO DAILY Clopidogrel (Clopidogrel Bisulfate) 75 Mg Tablet 75 Mg PO DAILY Reported Proair Hfa (Albuterol Sulfate) 1 Puff Puff 2 Puff IH Q6H PRN 1 PUFF = 90 MCG Tessalon Perles (Benzonatate) 100 Mg Capsule 200 Mg PO TID Ibuprofen 200 Mg Tablet 200 Mg PO PRN Klonopin (Clonazepam) 0.5 Mg Tablet 0.5 Mg PO BID Albuterol Sulfate 2.5 Mg/3 Ml Vial.neb 2.5 Mg INH DAILY Protonix (Pantoprazole Sodium) 40 Mg Tablet.dr 40 Mg PO DAILY Spiriva (Tiotropium [place]) 1 Inh Aerp 18 Inh IH DAILY Prozac (Fluoxetine HCl) 40 Mg Capsule 40 Mg PO DAILY Microzide (Hydrochlorothiazide) 12.5 Mg Capsule 12.5 Mg PO DAILY Buspirone HCl 15 Mg Tablet 15 Mg PO DAILY [Spiriva] 18 Mcg PO DAILY Prozac (Fluoxetine HCl) 20 Mg Capsule 40 Mg PO DAILY Assessment/Pt DC Instructions Appointment with Dr. Reyes's office in one to [address] Hurd's office in one to 2 weeks Discharge Diet: Low Sodium Diet Discharge Physical Examination Allergies: Coded Allergies: albuterol (Unverified Allergy, Unknown, 03/20/19) aspirin (Unverified Allergy, Unknown, 03/20/19) ciprofloxacin (Unverified Allergy, Unknown, 03/20/19) clindamycin (Unverified Allergy, Unknown, 03/20/19) levofloxacin (Unverified Allergy, Unknown, 03/20/19) Uncoded Allergies: ANTIBIOTIC (Allergy, Unknown, 09/30/17) General Appearance: No Apparent Distress, WD/WN HEENT: PERRL/EOMI, TMs Normal, Normal ENT Inspection, Pharynx Normal Respiratory: Chest Non Tender, Lungs Clear, Normal Breath Sounds, No Accessory Muscle Use, No Respiratory Distress Cardiovascular: Regular Rate, Rhythm, No Edema, No Gallop, No JVD, No Murmur, Normal Peripheral Pulses Gastrointestinal: Normal Bowel Sounds, No Organomegaly, No Pulsatile Mass, Non Tender Extremity: Normal Capillary Refill, Normal Inspection Skin: Normal Color, Warm/Dry Neurologic/Psychiatric: Alert, Oriented x3, No Motor/Sensory Deficits, Normal Mood/Affect Clinical Quality Measures AMI/AHF: ASA po Prior to arrival: Yes ([address] EMS) SHAHID REYES MD Aug 25, 2020 10:47 am
[2020-08-25] MEDS ORDERED: PRED10TA22 PO (11:13)
[2020-08-25 12:58] VITALS: BP 142/97
== END 2020-08-25 11:55 | disposition home or self-care (01) | DRG 246 ==
LOC: EDUNIT# 21:08 → ER 21:09 → CATH 21:25 → ICU 21:25 → CATH 22:48 → ICU 08-24 08:38 → CSD 08-24 08:38 → UNDOFXSDCSVC 08-24 08:38 → CSD 08-24 09:50 → CATH 08-25 11:55 → CSD 08-25 11:55
PROVIDERS: ADMIT Internal Medicine Cardiovascular Disease; ATTEND Internal Medicine Cardiovascular Disease
PROC: 027034Z Dilation of Coronary Artery, One Artery with Drug-eluting Intraluminal Device, Percutaneous Approach (ICD-10-PCS; principal; 2020-08-23)
PROC: 4A023N7 Measurement of Cardiac Sampling and Pressure, Left Heart, Percutaneous Approach (ICD-10-PCS; 2020-08-23)
PROC: B2111ZZ Fluoroscopy of Multiple Coronary Arteries using Low Osmolar Contrast (ICD-10-PCS; 2020-08-23)
PROC: B2151ZZ Fluoroscopy of Left Heart using Low Osmolar Contrast (ICD-10-PCS; 2020-08-23)
DX: I21.19 ST elevation (STEMI) myocardial infarction involving other coronary artery of inferior wall (principal); I50.21 Acute systolic (congestive) heart failure; R57.8 Other shock; J44.1 Chronic obstructive pulmonary disease with (acute) exacerbation; J45.901 Unspecified asthma with (acute) exacerbation; I11.0 Hypertensive heart disease with heart failure; I25.5 Ischemic cardiomyopathy; I25.10 Atherosclerotic heart disease of native coronary artery without angina pectoris; Z20.822 Contact with and (suspected) exposure to COVID-19; E78.5 Hyperlipidemia, unspecified; F17.210 Nicotine dependence, cigarettes, uncomplicated; F41.9 Anxiety disorder, unspecified; E78.00 Pure hypercholesterolemia, unspecified; M79.7 Fibromyalgia; I36.1 Nonrheumatic tricuspid (valve) insufficiency; Z88.1 Allergy status to other antibiotic agents; Z95.5 Presence of coronary angioplasty implant and graft; Z88.6 Allergy status to analgesic agent; Z79.2 Long term (current) use of antibiotics; Z79.1 Long term (current) use of non-steroidal anti-inflammatories (NSAID)
CPT/HCPCS: 36415; 71045; 80048; 80053; 80061; 80320; 82150; 82550; 82553; 83690; 83735; 83874; 83880; 84100; 84484; 85007; 85025; 85027; 85610; 85730; 87081; 87635; 93005; 93041; 93306; 93458; 94640; 94760; 96374; 96375

== ENCOUNTER → 2020-11-05 | Outpatient (CLI) | payer OTHER ==
[~2020-11-05] MED LIST changes: +ASPI-1238 PO; +ATOR10TA66 PO; +CLOP75TA28 PO; +LOSA25TA41 PO; +MTP25TSR PO; +PRD10T PO; +PRED10TA22 PO; +RT-ALBUTEROL SULF 2.5 MG/3 ML PRE-MIX VIAL INH ONE
== END ==
LOC: RT 10:30
PROVIDERS: ATTEND Internal Medicine Critical Care Medicine
DX: Z13.83 Encounter for screening for respiratory disorder NEC (principal); R06.00 Dyspnea, unspecified
CPT/HCPCS: 94060; 94726; 94729

== ENCOUNTER → 2021-01-09 | Outpatient (CLI) | payer OTHER ==
[~2021-01-09] MED LIST changes: -RT-ALBUTEROL SULF 2.5 MG/3 ML PRE-MIX VIAL INH ONE
--- NOTE | 2021-01-09 09:16 | Diagnostic Imaging Report ---
EXAMINATION: CT chest without contrast. TECHNIQUE: Multiple contiguous axial images were obtained through the chest without the use of intravenous contrast. All CT scans use one or more of the following dose optimizing techniques: automated exposure control, MA and/or KvP adjustment based on patient size and exam type or iterative reconstruction. HISTORY: Lung cancer follow-up. COMPARISON: CT chest 07/10/2020 FINDINGS: Thyroid: The thyroid is normal. Mediastinum: Heart size is normal without significant pericardial effusion. Calcifications of the aorta and coronary vessels. Thoracic aorta is normal in caliber. No suspicious lymphadenopathy. Lungs and airways: Background emphysematous changes of the lungs without consolidation, pleural effusion, or pneumothorax. Subpleural bands or scarring within the right lower lobe and left lower lobe. There is increased nodular density within the right perihilar region compared to prior exams. The nodular area measures approximately 3.2 x 0.7 cm. The airways are normal. Upper abdomen: Multiple longitudinal right renal calculi. Gallbladder surgically absent. Musculoskeletal: Chronic compression deformities of the midthoracic spine. Chronic right rib fractures. No new suspicious osseous lesion. IMPRESSION: 1. Interval increase in the nodular density within the right perihilar region compared to prior exams. This could represent posttreatment changes but given increase in size, evaluation with PET/CT would be beneficial for evaluation of recurrent tumor. 2. COPD. Dictated by: Dictated on workstation # [id number]
== END ==
LOC: RAD 08:46
PROVIDERS: ATTEND Radiology Radiation Oncology
DX: C34.11 Malignant neoplasm of upper lobe, right bronchus or lung (principal); J44.9 Chronic obstructive pulmonary disease, unspecified; R91.8 Other nonspecific abnormal finding of lung field
CPT/HCPCS: 71250

== ENCOUNTER → 2021-04-02 | Outpatient (CLI) | payer OTHER ==
--- NOTE | 2021-04-02 12:31 | Diagnostic Imaging Report ---
INDICATION: Routine screening. COMPARISON: 03/15/2020 and 11/24/2018. TECHNIQUE: 2D and 3D bilateral screening mammography was performed with CAD. FINDINGS: Scattered fibroglandular densities are identified bilaterally. The circumscribed density in the upper and outer aspect of the right breast appears stable. No new mass or malignant-appearing microcalcifications are seen. The axillae are unremarkable. IMPRESSION: No mammographic features suspicious for malignancy are identified. ACR BI-RADS Category 2: Benign findings. Result letter will be mailed to the patient. Note: At least 10% of breast cancer is not imaged by mammography. Dictated by: Dictated on workstation # [id number]
== END ==
LOC: RAD 10:00
PROVIDERS: ATTEND Student in an Organized Health Care Education/Training Program
DX: Z12.31 Encounter for screening mammogram for malignant neoplasm of breast (principal)
CPT/HCPCS: 77063; 77067

== ENCOUNTER → 2021-05-19 | Outpatient (CLI) | payer OTHER ==
[~2021-05-19] MED LIST changes: +CATHETER FLUSH 10 ML SYR IV PRN; +REGADENOSON 0.4 MG/5 ML SYR (LEXISCAN) IV ONE
[2021-05-19 08:52] VITALS: BP 159/90
--- NOTE | 2021-05-19 10:40 | Cardiology Stress Test Report ---
Stress Test Report Date of Procedure/Referring: Date of Procedure: May 19, 2021 PCP Shahid Reyes MD Admitting Physician Kyaw Nguyen MD Indications: HTN Baseline Heart Rate: 87 Baseline Blood Pressure: Blood Pressure Systolic: 159 Blood Pressure Diastolic: 90 Baseline Vitals Vital Signs Date Time Temp Pulse Resp B/P (MAP) Pulse Ox O2 Delivery O2 Flow Rate FiO2 05/19/21 08:52 87 159/90 (113) 99 Nasal Cannula 3.00 Baseline EKG: Baseline EKG: NSR Summary After explaining the procedure to the patient, she signed a consent and then brought to the stress nuclear laboratory. Patient received 0.4 mg Lexiscan for stress test, ECG, heart rate and blood pressure were monitored continuously. Resting and stress dose of radio tracer were injected, imaging was acquired and reviewed in short axis, horizontal long axis and vertical long axis views. TID: 0.97 SSS: 2 SDS: 0 EF: 77 1. Patient tolerated Lexiscan well 2. Breast attenuation with typical female pattern, no significant ischemia or infarction on SPECT images 3. Normal left ventricular size, EF 77% SHAHID REYES MD May 19, 2021 10:40
== END ==
LOC: CARD 07:30
PROVIDERS: ATTEND Internal Medicine Cardiovascular Disease
DX: I10 Essential (primary) hypertension (principal); I25.10 Atherosclerotic heart disease of native coronary artery without angina pectoris
CPT/HCPCS: 78452; 93017; A9502

== ENCOUNTER → 2021-07-03 | Outpatient (CLI) | payer OTHER ==
[~2021-07-03] MED LIST changes: +HOLD METFORMIN - RECEIVED CONTRAST 20 ML VIAL IV SCH; +IOHEXOL 350 MG/ML 100 ML (OMNIPAQUE 350) VIAL IV ONE; +NS 100 ML (IVPB) BAG IV ONE; -REGADENOSON 0.4 MG/5 ML SYR (LEXISCAN) IV ONE
[2021-07-03 09:08] LABS: CREATININE SERUM 0.74 MG/DL (0.60-1.30)
--- NOTE | 2021-07-03 10:31 | Diagnostic Imaging Report ---
EXAMINATION: CT chest with and without intravenous contrast. TECHNIQUE: Multiple contiguous axial images were obtained through the chest before and after the uneventful administration of intravenous contrast. All CT scans use one or more of the following dose optimizing techniques: automated exposure control, MA and/or KvP adjustment based on patient size and exam type or iterative reconstruction. HISTORY: Lung cancer, shortness of breath. COMPARISON: 01/09/2021 FINDINGS: There is no edema or pneumonia. No pleural effusion. No pneumothorax. No suspicious nodules. There is right hilar fibrosis, traction bronchiectasis and architectural distortion. The degree of soft tissue emanating from the right hilum is unchanged. There is chronic collapse of the right middle lobe. There is no axillary or supraclavicular lymphadenopathy. There is no mediastinal lymphadenopathy. Heart size is normal. There are severe coronary artery calcifications. No pericardial effusion. Aorta is normal in caliber. Limited views of the upper abdomen show changes of cholecystectomy. There is stable thickening of the left adrenal gland without a discrete nodule. There are no suspicious osseus lesions. There are old right-sided rib fractures. IMPRESSION: 1. Radiation changes to the right hilum without evidence of local recurrence. Dictated by: Dictated on workstation # [id number]
== END ==
LOC: RAD 09:45
PROVIDERS: ATTEND Radiology Radiation Oncology
DX: C34.11 Malignant neoplasm of upper lobe, right bronchus or lung (principal)
CPT/HCPCS: 36415; 71270; 82565; 84520

== ENCOUNTER 2021-10-03 05:29 | Outpatient (RCR) | payer MEDICARE, OTHER ==
[~2021-10-03] VITALS: Ht 157.5 cm; Wt 44.9 kg
[~2021-10-03 05:29] MED LIST changes: -CATHETER FLUSH 10 ML SYR IV PRN; -HOLD METFORMIN - RECEIVED CONTRAST 20 ML VIAL IV SCH; -IOHEXOL 350 MG/ML 100 ML (OMNIPAQUE 350) VIAL IV ONE; -NS 100 ML (IVPB) BAG IV ONE
== END 2021-10-03 11:59 | disposition home or self-care (01) ==
LOC: PREOP 05:29
PROVIDERS: ATTEND Surgery
DX: Z01.812 Encounter for preprocedural laboratory examination (principal); K29.50 Unspecified chronic gastritis without bleeding; R63.4 Abnormal weight loss; Z20.822 Contact with and (suspected) exposure to COVID-19
CPT/HCPCS: 87635

== ENCOUNTER 2021-10-06 07:54 | Day surgery (SDC) | payer MEDICARE, OTHER ==
[2021-10-06] VITALS (8 sets, daily range): BP systolic 94–131; BP diastolic 52–89
[~2021-10-06] VITALS: Ht 158 cm; Wt 44.9 kg
[2021-10-06] MEDS ORDERED: LACTATED RINGERS 1,000 ML IV STA (08:04)
[2021-10-06] MEDS ORDERED: HURRICAINE EXT TUBE (BENZOCAINE) XX PRN (08:15)
[2021-10-06] MEDS ORDERED: ATOR20TA66 PO (08:41)
[2021-10-06] MEDS ORDERED: NITR100C PO (08:41)
[2021-10-06] MEDS ORDERED: ONDA4TAB11 PO (08:41)
[2021-10-06] MEDS ORDERED: HYDR12.56 PO (08:41)
[2021-10-06] MEDS ORDERED: CLON0.5T PO (08:41)
[2021-10-06] MEDS ORDERED: FLUT12AE4 IH (08:41)
[2021-10-06] MEDS ORDERED: FLT22013 IH (08:41)
--- NOTE | 2021-10-06 08:47 | Progress Note-Pre Operative ---
Pre-Operative Progress Note H&P Reviewed The H&P was reviewed, patient examined and no changes noted. Time Seen by Provider: 08:44 Date H&P Reviewed: Oct 06, 2021 Time H&P Reviewed: 08:44 Pre-Operative Diagnosis: Weight loss, chronic gastritis SUMIT MCFADDEN DO Oct 06, 2021 08:47
[2021-10-06] MEDS ORDERED: MIDAZOLAM 2 MG/2 ML (VERSED) VIAL ONE (09:13)
[2021-10-06] MEDS ORDERED: PROPOFOL INJECTION 50 ML IV ONE (09:14)
--- NOTE | 2021-10-06 09:31 | Progress Note-Post Operative ---
Post-Operative Progess Note Surgeon (s)/Skin Lifter Bacon (s) Surgeon SUMIT MCFADDEN DO Skin Lifter Bacon: none Pre-Operative Diagnosis Weight loss, chronic gastritis Post-Operative Diagnosis Gastritis Hiatal Hernia Procedure & Operative Findings Date of Procedure 10/06/21 Procedure Performed/Findings EGD with biopsy PROCEDURE NOTE: After informed consent was obtained, the patient was brought to the endoscopy suite, placed in bed in left lateral decubitus position. She was administered IV sedation by the [employer] who then monitored vitals the entire time, heart rate, blood pressure and pulse ox and the scope was inserted down the mouth through the esophagus into the stomach. Pushed into the stomach and past the antrum into the duodenum. Duodenum looked good. Pulled back and noted some moderate gastritis near the antrum; did a biopsy of antrum and then retroflexed the scope. Saw more gastritis and a hiatal hernia, took a picture of this. Next pulled the scope into the GE junction, took a picture and then did a biopsy of the GE junction. Pushed the scope back into the stomach, suctioned all the air out of the stomach. At this point pulled the scope up the esophagus and out the mouth. The patient tolerated the procedure, and she recovered in endoscopy suite. Anesthesia Type IV sedation by [employer] Estimated Blood Loss Estimated blood loss (mL): scant Specimens/Packing Specimens Removed antral bx x 2 GE jxn bx SUMIT MCFADDEN DO Oct 06, 2021 09:31
--- NOTE | 2021-10-06 09:32 | Endoscopy Discharge Instruct ---
Endo Procedure/Findings Findings 1.: Gastritis 2.: Hiatal Hernia Discharge Instructions - Activity: You might feel a little sleepy until tomorrow. This is due to the medicine you received to relax you. Until tomorrow, you should: NOT drive a car, operate machinery or power tools. NOT drink any alcoholic beverages. NOT make any important decisions or sign importortant papers. Do not return to work until tomorrow, unless otherwise instructed. Resume previous activities tomorrow. Diet: Start by taking liquids. If you tolerate liquids, advance to solid food. 1.: EGD in 3 years Notify Physician - If you experience excessive bleeding, unusual abdominal pain, fever, or chest pain, contact your doctor immediately. SUMIT MCFADDEN DO Oct 06, 2021 09:32
[2021-10-06] MEDS ORDERED: RT-ALBUTEROL SULF 2.5 MG/3 ML PRE-MIX VIAL INH ONE (10:00)
--- NOTE | 2021-10-06 12:08 | Anesthesia-General Post-Op ---
MAC Patient Condition Mental Status/LOC: Same as Preop Cardiovascular: Satisfactory Nausea/Vomiting: Absent Respiratory: Satisfactory Pain: Controlled Complications: Absent Post Op Complications Complications None Follow Up Care/Instructions Patient Instructions None needed. Anesthesiology Discharge Order Discharge Order Patient is doing well, no complaints, stable vital signs, no apparent adverse anesthesia problems. No complications reported per nursing. DEVIN GOLDMAN CRNA Oct 06, 2021 12:08
== END 2021-10-06 10:40 | disposition home or self-care (01) ==
LOC: ENDO 07:54
PROVIDERS: ATTEND Surgery
DX: K29.70 Gastritis, unspecified, without bleeding (principal); K44.9 Diaphragmatic hernia without obstruction or gangrene; K22.70 Barrett's esophagus without dysplasia; J44.9 Chronic obstructive pulmonary disease, unspecified; I25.10 Atherosclerotic heart disease of native coronary artery without angina pectoris; E78.2 Mixed hyperlipidemia; I65.23 Occlusion and stenosis of bilateral carotid arteries; I25.2 Old myocardial infarction; I11.0 Hypertensive heart disease with heart failure; I50.21 Acute systolic (congestive) heart failure; I25.5 Ischemic cardiomyopathy; Z87.891 Personal history of nicotine dependence; Z85.118 Personal history of other malignant neoplasm of bronchus and lung; Z79.899 Other long term (current) drug therapy
CPT/HCPCS: 94640

== ENCOUNTER → 2022-01-01 | Outpatient (CLI) | payer MEDICARE, OTHER ==
[~2022-01-01] MED LIST changes: +ATOR20TA66 PO; +FLT22013 IH; +FLUT12AE4 IH; +HYDR12.56 PO; +NITR100C PO; +ONDA4TAB11 PO
--- NOTE | 2022-01-01 11:00 | Diagnostic Imaging Report ---
CLINICAL INDICATION: Patient posterior pain and soreness in back of head. Patient has unintentional weight loss with 35 pounds over the last seven months. Patient has history of lung cancer. EXAM: Axial CT scan of the brain performed without IV contrast. Auto Exposure Controls were utilized during the CT exam to meet ALARA standards for radiation dose reduction. COMPARISON: None. FINDINGS: There is no evidence of acute cerebral infarct, intracranial hemorrhage, or gross mass effect. There are small low-density areas involving bilateral basal ganglia regions which may represent prominent perivascular spaces or chronic infarcts, which are subcentimeter. The brain parenchymal volume appears appropriate for patient's age. There is normal haynes-white matter distinction. There is no significant midline shift or herniation. There is no evidence of hydrocephalus. The basal cisterns are unremarkable. The skull, extracranial soft tissue, and orbits are unremarkable. There is small amount of consolidation involving right mastoid air cells. There is small amount of fluid involving both mastoid air cells. Temporal bones show no significant abnormality. IMPRESSION: 1: There is no evidence of acute intracranial process. There is no intracranial mass effect or intracranial hemorrhage. 2: There are small low-density areas involving bilateral basal ganglia regions which may represent prominent perivascular spaces or chronic infarcts. 3: Mild paranasal sinus disease. Dictated by: Dictated on workstation # [id number]
--- NOTE | 2022-01-01 11:27 | Diagnostic Imaging Report ---
PROCEDURE: CT abdomen and pelvis without contrast. TECHNIQUE: Multiple contiguous axial images were obtained through the abdomen and pelvis without the use of intravenous contrast. Auto Exposure Controls were utilized during the CT exam to meet ALARA standards for radiation dose reduction. INDICATION: Unintentional weight loss. Correlation is made with prior CT abdomen study from 04/28/2012. The lung bases are clear. No discrete liver mass is detected. Gallbladder is surgically absent. No biliary duct dilatation is seen. Pancreas and spleen are unremarkable. No adrenal mass is detected. Calcific densities in the renal braulio bilaterally are noted which may be vascular. No hydronephrosis is identified. Bowel loops are nondilated. No obstruction is seen. There is no free fluid or fluid collection identified. The bladder is unremarkable. No definite abdominal or pelvic lymphadenopathy is seen. Bony structures are nonacute. IMPRESSION: Unremarkable noncontrast CT of the abdomen and pelvis. No acute feature is seen. No mass or lymphadenopathy is detected. Dictated by: Dictated on workstation # [id number]
== END ==
LOC: RAD 10:13
PROVIDERS: ATTEND Student in an Organized Health Care Education/Training Program
DX: R63.4 Abnormal weight loss (principal); J32.9 Chronic sinusitis, unspecified
CPT/HCPCS: 70450; 74176

== ENCOUNTER → 2022-01-01 | Outpatient (CLI) | payer MEDICARE, OTHER ==
--- NOTE | 2022-01-01 14:34 | Diagnostic Imaging Report ---
EXAMINATION: CT chest without contrast. TECHNIQUE: Multiple contiguous axial images were obtained through the chest without the use of intravenous contrast. All CT scans use one or more of the following dose optimizing techniques: automated exposure control, MA and/or KvP adjustment based on patient size and exam type or iterative reconstruction. HISTORY: Unintentional weight loss, history of lung cancer COMPARISON: 07/03/2021 FINDINGS: Thyroid: The thyroid is normal. Mediastinum: Heart size is normal without significant pericardial effusion. Calcifications of the aorta and coronary vessels. Thoracic aorta is normal in caliber. No suspicious lymphadenopathy. Lungs and airways: There are background emphysematous changes of the lungs without consolidation, pleural effusion, or pneumothorax. Likely posttreatment changes of fibrosis within the medial right middle lobe. There is atelectasis within the dependent lungs. No pleural effusion or pneumothorax. No new suspicious pulmonary lesion. The airways are normal. Upper abdomen: The gallbladder is surgically absent. Nonobstructing right renal calculi. Musculoskeletal: Multilevel degenerative changes in the spine. Chronic upper thoracic compression deformities. Chronic healed right rib fractures. IMPRESSION: 1. No new findings of metastatic disease within the chest. 2. COPD. 3. No other acute abnormality in the chest. Dictated by: Dictated on workstation # [id number]
== END ==
LOC: RAD 10:15
PROVIDERS: ATTEND Radiology Radiation Oncology
DX: J44.9 Chronic obstructive pulmonary disease, unspecified (principal); Z85.118 Personal history of other malignant neoplasm of bronchus and lung
CPT/HCPCS: 71250

== ENCOUNTER 2022-04-03 07:33 | Inpatient (IN) | payer MEDICARE, OTHER ==
[2022-04-03] VITALS (10 sets, daily range): BP systolic 101–157; BP diastolic 60–94
[~2022-04-03] VITALS: Ht 155 cm; Wt 40.3 kg
[2022-04-03] MEDS ORDERED: RT-ALBUTEROL/IPRATROPIUM 3 ML (DUONEB) VIAL ONE (07:42)
[2022-04-03] MEDS ORDERED: methylPREDNISolone 125 MG (Solu-MEDROL) VIAL IVP ONE (07:45)
[2022-04-03] MEDS ORDERED: NS IV 1000 ML 1,000 ML IV SCH (07:45)
[2022-04-03] MEDS ORDERED: RT-ALBUTEROL/IPRATROPIUM 3 ML (DUONEB) VIAL INH ONE (07:45)
[2022-04-03 07:47] LABS: BASOPHILS % (AUTO) 0 % (0-10); EOSINOPHILS % (AUTO) 0 % (0-10); HEMATOCRIT 37 % (35-52); HEMOGLOBIN 13.4 g/dL (11.5-16.0); LYMPHOCYTES # (AUTO) 0.6 10^3/uL (1.0-4.0); LYMPHOCYTES % (AUTO) 9 % (12-44); MEAN CORPUSCULAR HEMOGLOBIN 32 pg (25-34); MEAN CORPUSCULAR HGB CONC 36 g/dL (32-36); MEAN CORPUSCULAR VOLUME 90 fL (80-99); MEAN PLATELET VOLUME 9.5 fL (9.0-12.2); MONOCYTES # (AUTO) 0.7 10^3/uL (0.0-1.0); MONOCYTES % (AUTO) 12 % (0-12); NEUTROPHILS # (AUTO) 4.7 10^3/uL (1.8-7.8); NEUTROPHILS % (AUTO) 78 % (42-75); PLATELET COUNT 182 10^3/uL (130-400); WHITE BLOOD COUNT 6.1 10^3/uL (4.3-11.0)
[2022-04-03] MEDS ORDERED: RT-ALBUTEROL SULF 2.5 MG/3 ML PRE-MIX VIAL ONE (07:49)
--- NOTE | 2022-04-03 07:51 | ED Respiratory ---
General Chief Complaint: Respiratory Problems Stated Complaint: SOA Source: patient Exam Limitations: no limitations, clinical condition History of Present Illness Date Seen by Provider: Apr 03, 2022 Time Seen by Provider: 07:35 Initial Comments Patient is a 61-year-old female who presents to the emergency department with a chief complaint of shortness of breath. Patient has a history of "severe COPD" as per the medical record. She is on oxygen chronically at 3 L. She states her symptoms have been worsening for a couple of days. She has a nonproductive cough. No fevers chills, runny nose sore throat or congestion. She did use an albuterol inhaler at 4 AM. Patient was brought in by EMS, no meds were given including Solu-Medrol or albuterol. She has a history of a stent she believes in her leg. She is on aspirin. She is not COVID vaccinated. She states people still smoke in her home but she quit smoking in August. She denies chest pain. On arrival she has fairly increased work of breathing, labored, tachypneic. Poor overall air movement with scattered squeaky expiratory wheezes in the posterior lung grier bilaterally. Obvious accessory muscle use. She is satting 91 to 92% on 3 L per nasal cannula. Patient declines any intubation. No problems with bowel or bladder. Timing/Duration: other (1-2 days) Severity: severe Prior Episodes/Possible Cause: occasional episodes Modifying Factors: Improves With Albuterol Inhaler (4am) Associated Symptoms: chest pain/soreness, cough, shortness of breath Allergies and Home Medications Allergies Coded Allergies: albuterol (Unverified Allergy, Unknown, 04/03/22) get a racing heart with to many doses aspirin (Unverified Allergy, Unknown, 03/20/19) ciprofloxacin (Unverified Allergy, Unknown, 03/20/19) clindamycin (Unverified Allergy, Unknown, 03/20/19) levofloxacin (Unverified Allergy, Unknown, 03/20/19) Uncoded Allergies: ANTIBIOTIC (Allergy, Unknown, 09/30/17) Patient Home Medication List Home Medication List Reviewed: Yes Albuterol Sulfate (Albuterol Sulfate) 2.5 Mg/3 Ml Vial.neb, 2.5 MG INH DAILY, (Reported) Entered as Reported by: CAMPOS LEWIS on 03/20/19 0813 Albuterol Sulfate (Proair Hfa) 1 Puff Puff, 2 PUFF IH Q6H PRN for SHORTNESS OF BREATH, (Reported) Entered as Reported by: CAMPOS LEWIS on 03/20/19812 Aspirin (Aspirin EC) 81 Mg Tablet.dr, 81 MG PO DAILY Prescribed by: SHAHID DELONG on 08/25/20 1041 Atorvastatin Calcium (Atorvastatin Calcium) 20 Mg Tablet, 20 MG PO DAILY, (Reported) Entered as Reported by: EDEN DUKES on 10/06/21 08 Buspirone HCl (Buspirone HCl) 15 Mg Tablet, 15 MG PO DAILY, (Reported) Entered as Reported by: CAMPOS LEWIS on 03/20/19 08 Clonazepam (Klonopin) 0.5 Mg Tablet, 0.5 MG PO PRN, (Reported) Entered as Reported by: EDEN DUKES on 10/06/21840 Fluoxetine HCl (Prozac) 40 Mg Capsule, 40 MG PO DAILY, (Reported) Entered as Reported by: CAMPOS LEWIS on 03/20/19 08 Fluticasone Propionate (Flovent Hfa 220 mcg) 1 Ea Aero, 1 EA IH BID, (Reported) Entered as Reported by: EDEN DUKES on 10/06/21840 Fluticasone/Salmeterol (Advair Hfa 115-21 Mcg Inhaler) 12 Gm Hfa.aer.ad, 12 GM I H BID, (Reported) Entered as Reported by: EDEN DUKES on 10/06/21840 Hydrochlorothiazide (Hydrochlorothiazide) 12.5 Mg Tablet, 12.5 MG PO DAILY, (Reported) Entered as Reported by: EDEN DUKES on 10/06/21840 Nitrofurantoin Macrocrystal (Nitrofurantoin) 100 Mg Capsule, 100 MG PO HS, (Reported) Entered as Reported by: EDEN DUKES on 10/06/21840 Ondansetron (Ondansetron Odt) 4 Mg Tab.rapdis, 4 MG PO TID, (Reported) Entered as Reported by: EDEN DUKES on 10/06/21840 Review of Systems Review of Systems Constitutional: see HPI EENTM: no symptoms reported Respiratory: cough, short of breath, wheezing Cardiovascular: no symptoms reported Gastrointestinal: no symptoms reported Genitourinary: no symptoms reported : No Musculoskeletal: no symptoms reported Skin: no symptoms reported All Other Systems Reviewed Negative Unless Noted: Yes Past Fjekywb-Zcmvfr-Otxiaa Hx Patient Social History Tobacco Use?: No Smoking Status: Former Smoker Substance use?: No Alcohol Use?: No Pt feels they are or have been: No Immunizations Up To Date First/Initial COVID19 Vaccinat: NO Second COVID19 Vaccination Heri: NO Third COVID19 Vaccination Date: NO Seasonal Allergies Seasonal Allergies: No Past Medical History Surgery/Hospitalization HX: copd, htn, high chol, gerd, depression, Surgeries: Yes Coronary Stent, Gallbladder, Hysterectomy, Oophorectomy Respiratory: Yes (O2 PRN; LUNG CANCER--TX WITH RADIATION) COPD Cardiac: Yes Coronary Artery Disease, Heart Attack, High Cholesterol, Hypertension Neurological: No [employer]ER History: Hysterectomy, Menopausal Genitourinary: Yes UTI-Chronic Gastrointestinal: Yes (CHOLECYSTECTOMY) Gastroesophageal Reflux, Gall Bladder Disease Musculoskeletal: Yes Fibromyalgia Endocrine: No HEENT: No Cancer: Yes Lung Did You Recieve Any Treatments: Yes What Type of Treatment Did You: Radiation Psychosocial: Yes Anxiety, Depression Integumentary: No Blood Disorders: No Adverse Reaction/Blood Tranf: No Physical Exam Vital Signs - First Documented 04/03/22 07:37 Temp 36.1 Pulse 92 Resp 18 B/P (MAP) 145/101 (116) Pulse Ox 94 O2 Delivery Nasal Cannula O2 Flow Rate 3.00 Capillary Refill : Height: 5'1.00" Weight: 125lbs. 0.0oz. [id number]; 17.98 BMI Method:Stated General Appearance: thin, other (appears chronically ill) Eyes: Bilateral Eye Normal Inspection HEENT: PERRL/EOMI, other (dry oral mucosa) Neck: normal inspection Respiratory: respiratory distress, decreased breath sounds, accessory muscle use, wheezing (scattered scant exp wheezes bilateral posterior lung grier; moderated distress) Cardiovascular: regular rate, rhythm Extremities: normal range of motion, normal inspection, no pedal edema Neurologic/Psychiatric: alert, normal mood/affect, oriented x 3 Skin: normal color, warm/dry Progress/Results/Core Measures Suspected Sepsis SIRS Temperature: Pulse: Respiratory Rate: Laboratory Tests 04/03/22 07:38: White Blood Count 6.1 Blood Pressure / Mean: Laboratory Tests 04/03/22 07:38: Creatinine 0.67, Platelet Count 182 Results/Orders Lab Results Laboratory Tests Test 04/03/22 07:38 04/03/22 07:56 Range/Units White Blood Count 6.1 4.3-11.0 10^3/uL Red Blood Count 4.18 3.80-5.11 10^6/uL Hemoglobin 13.4 11.5-16.0 g/dL Hematocrit 37 35-52 % Mean Corpuscular Volume 90 80-99 fL Mean Corpuscular Hemoglobin 32 25-34 pg Mean Corpuscular Hemoglobin Concent 36 32-36 g/dL Red Cell Distribution Width 12.1 10.0-14.5 % Platelet Count 182 130-400 10^3/uL Mean Platelet Volume 9.5 9.0-12.2 fL Immature Granulocyte % (Auto) 0 % Neutrophils (%) (Auto) 78 H 42-75 % Lymphocytes (%) (Auto) 9 L 12-44 % Monocytes (%) (Auto) 12 0-12 % Eosinophils (%) (Auto) 0 0-10 % Basophils (%) (Auto) 0 0-10 % Neutrophils # (Auto) 4.7 1.8-7.8 10^3/uL Lymphocytes # (Auto) 0.6 L 1.0-4.0 10^3/uL Monocytes # (Auto) 0.7 0.0-1.0 10^3/uL Eosinophils # (Auto) 0.0 0.0-0.3 10^3/uL Basophils # (Auto) 0.0 0.0-0.1 10^3/uL Immature Granulocyte # (Auto) 0.0 0.0-0.1 10^3/uL Sodium Level 127 L 135-145 MMOL/L Potassium Level 3.2 L 3.6-5.0 MMOL/L Chloride Level 87 L 98-107 MMOL/L Carbon Dioxide Level 25 21-32 MMOL/L Anion Gap 15 H 5-14 MMOL/L Blood Urea Nitrogen 16 7-18 MG/DL Creatinine 0.67 0.60-1.30 MG/DL Estimat Glomerular Filtration Rate 101 BUN/Creatinine Ratio 24 Glucose Level 129 H 70-105 MG/DL Calcium Level 9.0 8.5-10.1 MG/DL Blood Gas Puncture Site L WRIST Blood Gas Patient Temperature 36.1 Arterial Blood pH 7.44 H 7.37-7.43 Arterial Blood Partial Pressure CO2 42 35-45 MMHG Arterial Blood Partial Pressure O2 62 L 79-93 MMHG Arterial Blood HCO3 29 H 23-27 MMOL/L Arterial Blood Total CO2 30.0 21.0-31.0 MMOL/L Arterial Blood Oxygen Saturation 93 L 94-100 % Arterial Blood Base Excess 4.0 H -2.5-2.5 MMOL/L Randall Test YES-POS Blood Gas Ventilator Setting NO Blood Gas Inspired Oxygen 3L My Orders Orders - MANUEL KELLY MD Ed Iv/Invasive Line Start (04/03/22 07:42) Cbc With Automated Diff (04/03/22 07:42) Basic Metabolic Panel (04/03/22 07:42) Ekg Tracing (04/03/22 07:42) Chest 1 View, Ap/Pa Only (04/03/22 07:42) Arterial Blood Gas (04/03/22 07:42) Ns Iv 1000 Ml (Sodium Chloride 0.9%) (04/03/22 07:45) Methylprednisolone Sod Succ (Solu-Medrol (04/03/22 07:45) Albuterol/Ipra Inhalation Soln (Duoneb I (04/03/22 07:45) Svn Small Volume Nebulizer (04/03/22 07:42) Communication For Respiratory (04/03/22 07:42) Albuterol/Ipra Inhalation Soln (Duoneb I (04/03/22 07:42) Albuterol Pre-Mix Nebs (Rt) (Proventil (04/03/22 08:00) Morphine Injection (Morphine Injection (04/03/22 08:26) Morphine Injection (Morphine Injection (04/03/22 08:26) Ceftriaxone 1 Gm Pre-Mix (Rocephin 1 Gm (04/03/22 09:00) Azithromycin Tablet (Zithromax Tablet) (04/03/22 09:00) Medications Given in ED Current Medications Medications Dose Ordered Sig/Kalyn Route Start Time Stop Time Status Last Admin Dose Admin Albuterol Sulfate 12.5 mg ONCE ONCE IH 04/03/22 08:00 04/03/22 08:01 UNV 04/03/22 07:55 12.5 MG Albuterol/ Ipratropium 3 ml ONCE ONCE INH 04/03/22 07:45 04/03/22 07:46 DC 04/03/22 07:45 3 ML Albuterol/ Ipratropium 3 ml STK-MED ONCE .ROUTE 04/03/22 07:42 04/03/22 07:45 DC 04/03/22 07:52 3 ML Azithromycin 500 mg ONCE ONCE PO 04/03/22 09:00 04/03/22 09:01 DC 04/03/22 09:39 500 MG Ceftriaxone Sodium/Dextrose 50 ml @ 100 mls/hr ONCE ONCE IV 04/03/22 09:00 04/03/22 09:29 DC 04/03/22 09:39 100 MLS/HR Methylprednisolone Sodium Succinate 125 mg ONCE ONCE IVP 04/03/22 07:45 04/03/22 07:46 DC 04/03/22 08:01 125 MG Vital Signs/I&O 04/03/22 04/03/22 04/03/22 07:37 07:37 07:55 Temp 36.1 Pulse 92 Resp 18 B/P (MAP) 145/101 (116) Pulse Ox 94 94 O2 Delivery Nasal Cannula Nasal Cannula O2 Flow Rate 3.00 3.00 Capillary Refill : Progress Note : Time: 10:21 Progress Note Patient continues to look improved but having increased work of breathing with RR 30's; WHeezing improved but not gone. sats 96% on 3-4L. She is not comfortable going home due to still working so hard. Labs look good. HR is down. BP normal. Discussed with Dr Pascual; will admit. Diagnostic Imaging Diagonstic Imaging: Xray Plain Films/CT/US/NM/MRI: chest Comments [facility]. [place], [place] NAME: LULI SCHAEFER [facility] REC#: [id number] PT STATUS: REG ER : 1960 PHYSICIAN: MANUEL KELLY MD ADMIT DATE: 04/03/22/ER Draft Date of Exam:04/03/22 CHEST 1 VIEW, AP/PA ONLY EXAM: CHEST 1 VIEW, AP/PA ONLY INDICATION: Worsening shortness of air. COPD. COMPARISON: 08/23/2020. FINDINGS: Hyperinflation. Normal heart size and central pulmonary vascularity. Increasing atelectasis or infiltrate in the right lung base. No pleural effusion or pneumothorax. No acute osseous findings. Chronic right rib fractures. IMPRESSION: 1. Increasing atelectasis or infiltrate in the right lung base. 2. COPD. Dictated on workstation # [id number] Dict: 04/03/22 0840 Trans: 04/03/22 0844 JOVANY [id number] Interpreted by: JENNIFER PERALTA MD Electronically signed by: Critical Care Note Critical Care Start Time: 07:35 Stop Time: 10:28 Total Time (minutes) 45 min critical care time in the eval and management of this patient with COPD a nd respiratory distress. Time includes supplemental oxygenation, prolonged breathing treatments, frequent reassessments, review and interpretation of labs, imaging studies Departure Communication (Admissions) Time/Spoke to Admitting Phy: 10:[address] Pascual; IP, Step down with pna and COPD Impression Primary Impression: Pneumonia Qualified Codes: J18.9 - Pneumonia, unspecified organism Additional Impression: COPD with acute exacerbation Disposition: ADMITTED INPATIENT Condition: Stable Admissions Decision to Admit Reason: Admit from ER (General) Decision to Admit/Date: Apr 03, 2022 Time/Decision to Admit Time: 10:20 Departure-Patient Inst. Referrals: BREONNA DUPONT MD (PCP) Primary Care Physician ELLIE GIFFORD (Family) Primary Care Physician MANUEL KELLY MD Apr 03, 2022 07:51
[2022-04-03 07:52] LABS: POTASSIUM 3.2 MMOL/L (3.6-5.0)
[2022-04-03 07:58] LABS: CREATININE SERUM 0.67 MG/DL (0.60-1.30)
[2022-04-03] MEDS ORDERED: RT-ALBUTEROL SULF 2.5 MG/3 ML PRE-MIX VIAL IH ONE ×2 (08:00→13:30)
[2022-04-03 08:14] LABS: ABG OXYGEN SATURATION 93 % (94-100); ABG PCO2 42 MMHG (35-45); ABG PH 7.44 (7.37-7.43); ABG PO2 62 MMHG (79-93); ALLENS TEST YES-POS; INSPIRED O2 3L; PATIENT TEMP 36.1; VENTILATOR NO
[2022-04-03] MEDS ORDERED: morphine INJ 10 MG/ML 1ML (SYR OR VIAL) IVP STA (08:26)
[2022-04-03] MEDS ORDERED: morphine INJ 10 MG/ML 1ML (SYR OR VIAL) ONE (08:26)
--- NOTE | 2022-04-03 08:45 | Diagnostic Imaging Report ---
EXAM: CHEST 1 VIEW, AP/PA ONLY INDICATION: Worsening shortness of air. COPD. COMPARISON: 08/23/2020. FINDINGS: Hyperinflation. Normal heart size and central pulmonary vascularity. Increasing atelectasis or infiltrate in the right lung base. No pleural effusion or pneumothorax. No acute osseous findings. Chronic right rib fractures. IMPRESSION: 1. Increasing atelectasis or infiltrate in the right lung base. 2. COPD. Dictated by: Dictated on workstation # [id number]
[2022-04-03] MEDS ORDERED: AZITHROMYCIN 250 MG TAB (ZITHROMAX) PO ONE (09:00)
[2022-04-03] MEDS ORDERED: cefTRIAXone 1 GM PRE-MIX 50 ML IV ONE (09:00)
[2022-04-03 10:25] LABS: ALBUMIN 4.3 GM/DL (3.2-4.5)
[2022-04-03 10:28] LABS: TOTAL PROTEIN 7.3 GM/DL (6.4-8.2)
[2022-04-03 10:29] LABS: BILIRUBIN,TOTAL 0.9 MG/DL (0.1-1.0)
[2022-04-03 10:33] LABS: BILIRUBIN,DIRECT 0.3 MG/DL (0.0-0.3); BILIRUBIN,INDIRECT 0.6 MG/DL
[2022-04-03] MEDS ORDERED: diphenhydrAMINE 50 MG/ML INJ (BENADRYL) IVP PRN (13:00)
[2022-04-03] MEDS ORDERED: MILK OF MAGNESIA 400 MG/5 ML 30 ML UDC PO PRN (13:00)
[2022-04-03] MEDS ORDERED: ONDANSETRON 4 MG/2 ML (SDV) Z0FRAN IV PRN (13:00)
[2022-04-03] MEDS ORDERED: MELATONIN 3 MG TABLET PO PRN (13:00)
[2022-04-03] MEDS ORDERED: CEFEPIME INJECTION 1,000 MG in NS (IVPB) 50 ML IV SCH (13:00)
[2022-04-03] MEDS ORDERED: polyethylene glycoL POWDER 17 GM (MIRALAX) PACK PO PRN (13:00)
[2022-04-03] MEDS ORDERED: ANTACID SUSP 30 ML UDC (MYLANTA) PO PRN (13:00)
[2022-04-03] MEDS ORDERED: ONDANSETRON 4 MG (ZOFRAN) ORAL DISSOLVE TAB PO PRN (13:00)
[2022-04-03] MEDS ORDERED: diphenhydrAMINE 25 MG TAB (BENADRYL) PO PRN (13:00)
[2022-04-03] MEDS ORDERED: LACTULOSE SYRUP 10GM/15ML (ENULOSE) 30ML UDC PO PRN (13:00)
[2022-04-03] MEDS ORDERED: ACETAMINOPHEN 325 MG TABLET PO PRN (13:00)
[2022-04-03] MEDS ORDERED: CALCIUM CARBONATE 500 MG (TUMS) TAB.CHEW PO PRN (13:00)
[2022-04-03] MEDS ORDERED: BISACODYL 10 MG SUPP (DULCOLAX) PR PRN (13:00)
--- NOTE | 2022-04-03 13:51 | History & Physical-Hospitalist ---
MIGUE GUTIERRES 04/03/22 1351: History of Present Illness HPI/Chief Complaint Patient is a 61-year-old white frail appearing female who presented to the ER t his morning by EMS for increasing SOB. She was treated by ER but did not feel comfortable going home and has subsequently been admitted. Patient has history of COPD, asthma, and lung cancer (in remission for 3 years). She uses at home oxygen at 3L. She states her symptoms have been worsening for a couple of days. She woke up this morning and was having trouble catching her breath. She used her albuterol nebulizer this morning but did not help improve her SOB. She was treated appropriately in the ER, given steroids, breathing treatments, and antibiotics. She is currently in tripod position trying to catch her breath. She has conversational dyspnea. She has a nonproductive cough. Patient denies any fevers chills, runny nose sore throat or congestion. She denies any chest pain. She states she quit smoking in August but people still smoke in her home. Patient has concerns of her losing weight over the last year and is concerned that she is losing her strength. She states that she does not eat some days do to lack of appetite. She is concerned that she cannot gain weight nor keep weight on. She is not COVID vaccinated. COVID testing to be preformed, awaiting results. Source: patient Date Seen 04/03/22 Attending Physician Kyaw Nguyen MD PCP Admitting Physician: Harmony Pascual DO Attending Physician: Harmony Pascual DO Referring Physician Date of Admission Apr 03, 2022 at 10:30 Home Medications & Allergies Home Medications Reviewed patient Home Medication Reconciliation performed by pharmacy medication reconciliations system support technician and/or nursing. Patients Allergies have been reviewed. Allergies Allergies Coded Allergies albuterol (Unverified Allergy, Unknown, 04/03/22) get a racing heart with to many doses aspirin (Unverified Allergy, Unknown, 03/20/19) ciprofloxacin (Unverified Allergy, Unknown, 03/20/19) clindamycin (Unverified Allergy, Unknown, 03/20/19) levofloxacin (Unverified Allergy, Unknown, 03/20/19) Uncoded Allergies ANTIBIOTIC ( Allergy, Unknown, 09/30/17) Past Fiwyxxn-Usjchb-Lmpnun Hx Patient Social History Tobacco Use?: No Smoking Status: Former Smoker Substance use?: No Alcohol Use?: No Pt feels they are or have been: No Immunizations Up To Date First/Initial COVID19 Vaccinat: NO Second COVID19 Vaccination Heri: NO Seasonal Allergies Seasonal Allergies: No Current Status Advance Directives: No Primary Language: Danish Preferred Spoken Language: Danish Implanted or Applied Medical D: Stents Past Medical History Surgeries: Coronary Stent, Gallbladder, Hysterectomy, Oophorectomy Asthma, COPD Coronary Artery Disease, Heart Attack, High Cholesterol, 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 Both but cannot remember how old they were when they passed. Says mother was in 80's and father in his 60's) Review of Systems Constitutional: No chills, No diaphoresis; weakness EENTM: No hearing loss, No ear pain Respiratory: cough, dyspnea on exertion, short of breath, wheezing Cardiovascular: No chest pain, No edema Gastrointestinal: No abdominal pain Genitourinary: No no symptoms reported Musculoskeletal: No muscle stiffness, No muscle cramps Skin: No change in color, No change in hair/nails Psychiatric/Neurological: Anxiety, Weakness Physical Exam Physical Exam Vital Signs Vital Signs - First Documented 04/03/22 04/03/22 07:37 13:42 Temp 36.1 Pulse 92 Resp 36 B/P (MAP) 145/101 (116) Pulse Ox 94 O2 Delivery Nasal Cannula O2 Flow Rate 3.00 FiO2 32 Capillary Refill : Less Than 3 Seconds Height, Weight, BMI Height: 5'1.00" Weight: 125lbs. 0.0oz. 56.742215si; 18.00 BMI Method:Stated General Appearance: Anxious, Mild Distress, Thin HEENT: PERRL/EOMI; No Scleral Icterus (L), No Scleral Icterus (R) Neck: Full Range of Motion, Normal Inspection Respiratory: Chest Non Tender; No Lungs Clear, No Normal Breath Sounds; Accessory Muscle Use, Respiratory Distress, Wheezing Cardiovascular: No Gallop, No Murmur Gastrointestinal: Non Tender, Soft Rectal: Deferred Back: Normal Inspection, No CVA Tenderness Extremity: Normal Capillary Refill, Normal Inspection, No Pedal Edema Neurologic/Psychiatric: Alert, Oriented x3 Skin: Normal Color, Warm/Dry Lymphatic: No Adenopathy Results Results/Procedures Labs Laboratory Tests 04/03/22 07:38 Patient resulted labs reviewed. Assessment/Plan Assessment and Plan Assessment and Plan: Acute COPD exacerbation Continue supplemental oxygen Continue IV steroids Continue breathing treatment Albuterol / Ipratropium Acute Respiratory Failure Community Acquired pneumonia Continue azithromycin and start IV cefepime Repeat chest x-ray Asthma History of lung Cancer (in remisson) HTN-monitor/continue home medications Hyponatremia Monitor and replace Hypokalemia Monitor and replace Monitor glucose levels HARMONY PASCUAL DO 04/04/22 0601: History of Present Illness HPI/Chief Complaint CC: SOB HPI: This is a 61 yr old female. 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 She presents with SOB. She has severe emphysema. She continues to smoke. She was found to have a right lower lobe pneumonia. Pt was placed on Cefepime, Azithromycin, IV steroids, and breathing treatments. Source: patient Time Seen by a Provider: 12:00 Past Kxntqeo-Xrojgn-Zmpbth Hx Patient Social History Marrital Status: single Employed/Student: unemployed Smoking Status: Current Everyday Smoker Past Medical History Asthma, COPD Review of Systems Constitutional: see HPI, weakness Respiratory: short of breath, wheezing Physical Exam Physical Exam General Appearance: Chronically ill, Mild Distress, Thin Respiratory: Accessory Muscle Use, Respiratory Distress, Wheezing Cardiovascular: Regular Rate, Rhythm Neurologic/Psychiatric: Alert, Oriented x3 Assessment/Plan Admission Diagnosis Assessment: Acute on chronic resp failure PNA Smoker Plan: DNI ICU transfer IV steroids Admission Status: Inpatient Order (span 2 midnights) Reason for Inpatient Admission: resp failure Supervisory-Addendum Brief Verification & Attestation Participated in pt care: history, MDM, physical Personally performed: exam, history, MDM, supervision of care Care discussed with: Medical Student Procedures: n/a Results interpretation: Verified all documentation Verification and Attestation of Medical Student E/M Service A medical student performed and documented this service in my presence. I reviewed and verified all information documented by the medical student and made modifications to such information, when appropriate. I personally performed the physical exam and medical decision making. Harmony Pascual, Apr 04, 2022,06:01 MIGUE GUTIERRES Apr 03, 2022 13:51 HARMONY PASCUAL DO Apr 04, 2022 06:01
[2022-04-03] MEDS ORDERED: RT-ALBUTEROL/IPRATROPIUM 3 ML (DUONEB) VIAL INH SCH (14:00)
[2022-04-03] MEDS ORDERED: RT-ALBUTEROL/IPRATROPIUM 3 ML (DUONEB) VIAL INH PRN (14:00)
[2022-04-03] MEDS: RT-ALBUTEROL HFA 8.5 GM INHALER IH SCH ×3 (14:27→21:58)
[2022-04-03] MEDS ORDERED: NS IV 500 ML 500 ML IV PRN (14:30)
[2022-04-03] MEDS ORDERED: MTP25TSR PO (15:34)
[2022-04-03] MEDS ORDERED: PANT40TA52 PO (15:34)
[2022-04-03] MEDS ORDERED: NITR100C10 PO (15:34)
[2022-04-03] MEDS ORDERED: ONDA-105 PO (15:34)
[2022-04-03] MEDS ORDERED: FLUO40CA PO (15:34)
[2022-04-03] MEDS ORDERED: DRONABINOL 2.5MG PO (15:34)
[2022-04-03] MEDS ORDERED: LOSA25TA41 PO (15:34)
--- NOTE | 2022-04-03 15:34 | Tele-ICU Progress Note ---
Subjective Date Seen by a Provider: Apr 03, 2022 Time Seen by a Provider: 14:45 Subjective/Events-last exam This virtual visit was conducted using real time audio/video. Thank you for asking us to see this patient for respiratory insufficiency due to pna and AECOPD PMH: COPD/home O2 3 LPM, CAD, PAD, HTN, HL, XRT for lung CA, GERD, anx/dep. SH: smoking history quit 08/2021. FH: Non-contributory ROS: limited by patient's clinical condition, but as inn HPI. PE: Mild-moderate distress, cachectic, using acc. muacles. VSS. O2 sat 92% on 3 LPM HEENT: No obvious masses, adenopathy or JVD. Chest: Diminished, wheezy on auscultation. CV: RRR S1 S2 No murmur or added sounds. Abd: Non-tender. Bowel sounds Y. : Unremarkable. Cruz Y. ASSEMBLER PIANO/psychiatric: Grossly intact. No obvious focal findings. Extremities: No edema. Capillary refill < 3 seconds. Skin: unremarkable. Results: Elevated Lact 2.3 . Decreased Na 127, K 3.2. B.44/42/62 on 3 LPM. CXR: Very hyperinflated, infiltrate at R base. Available chart/ vitals / labs / images reviewed. Video assessment done using teleICU camera, rest of exam as per RN. A/P: Respiratory insufficiency: Continue present management with Duonebs, medrol, precedex. Will add BiPAP Monitor for increasing oxygenation needs and/or need for intubation. Pt states currently DNI. Critical Care: critically ill patient. Cont. abx, Adrien., SSI. Replace K. Discussed with ZE Jimenez. Asked RN to reach out to eICU if any questions or concerns later. Time spent with patient/coordination of care with other health professionals (mins): 45 Sepsis Event Evaluation Height, Weight, BMI Height: 5'1.00" Weight: 125lbs. 0.0oz. 56.627092jn; 18.00 BMI Method:Stated Focused Exam Lactate Level 04/03/22 10:39: Lactic Acid Level 2.30*H 04/03/22 12:49: Lactic Acid Level 2.12*H 04/03/22 14:49: Lactic Acid Level 1.49 Lactic Acid Level Laboratory Tests Test 04/03/22 12:49 04/03/22 14:49 Lactic Acid Level 2.12 MMOL/L (0.50-2.00) *H 1.49 MMOL/L (0.50-2.00) Exam Exam Patient acknowledged, consented, and participated in this virtual visit which was conducted using real time audio/video Vital Signs Date Time Temp Pulse Resp B/P (MAP) Pulse Ox O2 Delivery O2 Flow Rate FiO2 04/03/22 14:27 90 Nasal Cannula 5.00 04/03/22 13:42 36.1 92 98 32 04/03/22 12:37 92 28 106/72 98 Nasal Cannula 3.00 04/03/22 07:55 94 Nasal Cannula 3.00 04/03/22 07:37 36.1 92 36 145/101 (116) 94 04/03/22 07:37 Nasal Cannula 3.00 Height & Weight Height: 5'1.00" Weight: 125lbs. 0.0oz. 56.114593hu; 18.00 BMI Method:Stated General Appearance: Anxious, Mild Distress, Thin HEENT: PERRL/EOMI; No Scleral Icterus (L), No Scleral Icterus (R) Neck: Full Range of Motion, Normal Inspection Respiratory: Chest Non Tender; No Lungs Clear, No Normal Breath Sounds; Accessory Muscle Use, Respiratory Distress, Wheezing Cardiovascular: No Gallop, No Murmur Capillary Refill: Less Than 3 Seconds Extremity: Normal Capillary Refill, Normal Inspection, No Pedal Edema Neurologic/Psychiatric: Alert, Oriented x3 Skin: Normal Color, Warm/Dry Lymphatic: No Adenopathy Results Lab Laboratory Tests 04/03/22 07:38 Assessment/Plan Assessment/Plan See free text. Critical Care: Critically Ill Patient PALOMA RAMOS MD Apr 03, 2022 15:34
[2022-04-03] MEDS ORDERED: RT-ALBUTEROL HFA 8.5 GM INHALER IH PRN (16:00)
[2022-04-03] MEDS: ENOXAPARIN INJECTION 30 MG/0.3 ML SYR SC SCH (16:28)
[2022-04-03] MEDS: DexMEDEtomidine 250 ML DRIP 250 ML IV SCH (16:30)
[2022-04-03] MEDS: inSUlin ASPART (NovoLOG) 1 UNIT/0.01 ML (CHARGE PER UNIT) SC SCH ×2 (16:31→21:00)
[2022-04-03] MEDS: NS IV 1000 ML 1,000 ML IV SCH (16:32)
[2022-04-03] MEDS: methylPREDNISolone 40 MG/ML (Solu-MEDROL) VIAL IV SCH (19:02)
[2022-04-03] MEDS: POTASSIUM CL 10MEQ/50ML IVPB 50 ML IV SCH ×4 (19:02→22:29)
[2022-04-03] MEDS: SENNOSIDES 8.6 MG (SENOKOT) TAB PO SCH (21:00)
[2022-04-03] MEDS: DOCUSATE SODIUM 100 MG (COLACE) CAP PO SCH (21:00)
[2022-04-03] MEDS: CEFEPIME INJECTION 1,000 MG in NS (IVPB) 50 ML IV SCH (22:31)
[2022-04-04] VITALS (22 sets, daily range): BP systolic 98–137; BP diastolic 60–96
[2022-04-04] MEDS: methylPREDNISolone 40 MG/ML (Solu-MEDROL) VIAL IV SCH ×4 (00:40→17:30)
[2022-04-04] MEDS: RT-ALBUTEROL HFA 8.5 GM INHALER IH SCH ×6 (02:58→23:02)
[2022-04-04] MEDS: NS IV 1000 ML 1,000 ML IV SCH ×2 (04:23→11:14)
[2022-04-04] MEDS: CEFEPIME INJECTION 1,000 MG in NS (IVPB) 50 ML IV SCH ×3 (04:23→17:30)
[2022-04-04] MEDS: inSUlin ASPART (NovoLOG) 1 UNIT/0.01 ML (CHARGE PER UNIT) SC SCH ×4 (06:00→20:57)
[2022-04-04] MEDS: POTASSIUM CL 10MEQ/50ML IVPB 50 ML IV SCH ×3 (06:00→16:00)
[2022-04-04] MEDS: MAGNESIUM 1 GM/100 ML IVPB 100 ML IV SCH (06:00)
[2022-04-04] MEDS: KCL 20 MEQ TAB (K-DUR) PO SCH (06:00)
[2022-04-04 06:23] LABS: BASOPHILS % (AUTO) 0 % (0-10); EOSINOPHILS % (AUTO) 0 % (0-10); HEMATOCRIT 33 % (35-52); MEAN PLATELET VOLUME 9.5 fL (9.0-12.2)
[2022-04-04 06:25] LABS: HEMOGLOBIN 11.4 g/dL (11.5-16.0); LYMPHOCYTES # (AUTO) 0.2 10^3/uL (1.0-4.0); LYMPHOCYTES % (AUTO) 12 % (12-44); MEAN CORPUSCULAR HEMOGLOBIN 32 pg (25-34); MEAN CORPUSCULAR HGB CONC 35 g/dL (32-36); MEAN CORPUSCULAR VOLUME 92 fL (80-99); MONOCYTES # (AUTO) 0.1 10^3/uL (0.0-1.0); MONOCYTES % (AUTO) 5 % (0-12); NEUTROPHILS # (AUTO) 1.6 10^3/uL (1.8-7.8); NEUTROPHILS % (AUTO) 83 % (42-75); PLATELET COUNT 138 10^3/uL (130-400)
[2022-04-04 06:42] LABS: ALBUMIN 3.7 GM/DL (3.2-4.5); POTASSIUM 3.6 MMOL/L (3.6-5.0)
[2022-04-04 06:43] LABS: CALCIUM 8.2 MG/DL (8.5-10.1)
[2022-04-04 06:46] LABS: BILIRUBIN,TOTAL 0.5 MG/DL (0.1-1.0)
[2022-04-04 06:48] LABS: CREATININE SERUM 0.64 MG/DL (0.60-1.30); PHOSPHORUS 2.7 MG/DL (2.3-4.7)
[2022-04-04 06:51] LABS: MAGNESIUM 1.7 MG/DL (1.6-2.4)
--- NOTE | 2022-04-04 07:20 | Progress Note - Hospitalist ---
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 She presents with SOB. She has severe emphysema. She continues to smoke. She was found to have a right lower lobe pneumonia. Pt was placed on Cefepime, Azithromycin, IV steroids, and breathing treatments. Subjective/Events-last exam Patient doing about the same Precedex required to tolerate BIPAP Patient appears very end stage and 30 years older that stated age COVID + Review of Systems General: Fatigue, Malaise Pulmonary: Dyspnea, Cough Focused Exam Lactate Level 04/03/22 10:39: Lactic Acid Level 2.30*H 04/03/22 12:49: Lactic Acid Level 2.12*H 04/03/22 14:49: Lactic Acid Level 1.49 Objective Exam Vital Signs Vital Signs Date Time Temp Pulse Resp B/P (MAP) Pulse Ox O2 Delivery O2 Flow Rate FiO2 04/04/22 13:00 99 04/04/22 13:00 20 123/74 (90) 100 NIV Bilevel 30.00 04/04/22 12:00 36.7 04/04/22 08:00 30 Capillary Refill : Less Than 3 Seconds General Appearance: Anxious, Chronically ill, Mild Distress, Thin Respiratory: Accessory Muscle Use, Decreased Breath Sounds, Wheezing Cardiovascular: Regular Rate, Rhythm Neurologic/Psychiatric: Alert, Oriented x3 Results/Procedures Lab Laboratory Tests 04/04/22 06:00 Patient resulted labs reviewed. Assessment/Plan Assessment and Plan Assess & Plan/Chief Complaint Assessment: Acute on chronic respiratory failure requiring ICU transfer for BIPAP and Precedex Smoker COVID + (never had condition and remains unvaccinated) End stage COPD RLL PNA Plan: Supportive care Monitor O2 DNI Critical Care Critically Ill Patient MOLINAHUMPHREY CHRISTIANSONJonathan NOLASCO Apr 04, 2022 07:20
--- NOTE | 2022-04-04 08:02 | Diagnostic Imaging Report ---
EXAMINATION: Chest 1 view HISTORY: Short of breath COMPARISON: 04/03/2022 FINDINGS: Lungs are hyperinflated. There is mild right base atelectasis. No pleural effusion or pneumothorax. Heart size is normal. No edema or pneumonia. There are old right-sided rib fractures. IMPRESSION: 1. Mild right base atelectasis. Dictated by: Dictated on workstation # [id number]
[2022-04-04] MEDS: AZITHROMYCIN INJECTION 500 MG in NS (IVPB) 250 ML IV SCH (08:43)
--- NOTE | 2022-04-04 08:46 | Tele-ICU Progress Note ---
Subjective Date Seen by a Provider: Apr 04, 2022 Time Seen by a Provider: 08:45 Subjective/Events-last exam Tele-ICU Physician , Progress Note ) Available chart/ vitals / labs / Images reviewed Video assessment done using teleICU camera, rest of exam as per RN Discussed with RN Events overnight : Afebrile hemodynamically stable Respiratory - placed on bipap this am I/O = + Drips: precedex 0.5 Pressors- no Consultants: Hospital course: (04/03) 61yF admitted for COVID PNA and AECOPD (Hx lung CA on 2-3L O2 at home) (04/04) Acidotic, remains on bipap A/P Acute hypoxic and hypercarbic resp failure - -Placed on BIPAP 04/29 30% , - doing well RR 18 TV 800 =follow abx -precedex for anxiety AECOPD -Continue IV steroids --breathing treatment - cont abx for LRTI, suspected CAP Covid + already on steroids for AECOPD - will add RMDSV - check ddimer H/o advanced COPD / emphysema - on home o2 - 2L Monitor glucose levels Lines : peripph , (Central Line Necessity Reviewed) Cruz: + OG: Nutrition: PO Analgesia: Anxiety/ delirium VTE Prophylaxis: андрей 30 Stress Ulcer Prophylaxis: PPI Plans in collaboration with bedside consultants and IM MDs. Discussed with RN to reach out if any questions or concerns A total of 31 minutes of critical care time was devoted to this patient today, r equired to treat and/or prevent further deterioration of critical care condition ( as above ) . Sepsis Event Evaluation Height, Weight, BMI Height: 5'1.00" Weight: 125lbs. 0.0oz. 56.590626ii; 16.64 BMI Method:Stated Focused Exam Lactate Level 04/03/22 10:39: Lactic Acid Level 2.30*H 04/03/22 12:49: Lactic Acid Level 2.12*H 04/03/22 14:49: Lactic Acid Level 1.49 Exam Exam Patient acknowledged, consented, and participated in this virtual visit which was conducted using real time audio/video Vital Signs Date Time Temp Pulse Resp B/P (MAP) Pulse Ox O2 Delivery O2 Flow Rate FiO2 04/04/22 08:00 97 18 100 NIV Bilevel 30.00 04/04/22 07:00 87 04/04/22 07:00 71 18 110/60 (77) 100 NIV Bilevel 30.00 04/04/22 06:15 NIV Bilevel 30.00 04/04/22 06:00 93 17 97 30.00 04/04/22 06:00 97 21 118/64 (82) 97 Nasal Cannula 6.00 04/04/22 05:00 98 19 99/78 (85) 98 Nasal Cannula 6.00 04/04/22 04:00 84 23 133/81 (98) 98 Nasal Cannula 6.00 04/04/22 04:00 95 Nasal Cannula 6.00 04/04/22 03:00 98 24 98/77 (84) 98 Nasal Cannula 6.00 04/04/22 02:58 97 Nasal Cannula 6.00 04/04/22 02:00 80 18 107/66 (80) 99 Nasal Cannula 6.00 04/04/22 01:00 105 19 115/67 (83) 98 Nasal Cannula 6.00 04/04/22 01:00 96 04/04/22 00:00 94 NIV Bilevel 6.00 30 04/04/22 00:00 94 19 99 Nasal Cannula 6.00 04/03/22 23:00 104 17 97 Nasal Cannula 6.00 04/03/22 22:00 103 14 126/78 (94) 97 Nasal Cannula 6.00 04/03/22 21:58 97 Nasal Cannula 6.00 04/03/22 21:38 Nasal Cannula 6.00 04/03/22 21:00 98 19 102/60 (74) 98 Nasal Cannula 4.00 04/03/22 20:00 36.2 04/03/22 20:00 95 Nasal Cannula 6.00 04/03/22 20:00 96 14 125/77 (93) 95 Nasal Cannula 4.00 04/03/22 19:38 Nasal Cannula 4.00 04/03/22 19:00 92 18 103/66 (78) 94 NIV Bilevel 30.00 04/03/22 19:00 90 04/03/22 18:33 98 20 96 30.00 04/03/22 18:00 98 17 101/62 (75) 96 NIV Bilevel 30.00 04/03/22 17:00 98 20 105/88 (94) 91 NIV Bilevel 30.00 04/03/22 16:30 99 04/03/22 16:30 96 157/94 04/03/22 16:00 NIV Bilevel 30 04/03/22 15:35 99 18 98 30.00 04/03/22 14:27 90 Nasal Cannula 5.00 04/03/22 14:15 105 32 157/94 (115) 89 Nasal Cannula 5.00 04/03/22 14:00 Nasal Cannula 6.00 04/03/22 13:42 36.1 92 98 32 04/03/22 12:37 92 28 106/72 98 Nasal Cannula 3.00 I & O 04/04/22 07:00 Intake Total 2520 ml Output Total 1025 ml Balance 1495 ml Height & Weight Height: 5'1.00" Weight: 125lbs. 0.0oz. 56.469957zh; 16.64 BMI Method:Stated General Appearance: Chronically ill, Mild Distress, Thin HEENT: PERRL/EOMI; No Scleral Icterus (L), No Scleral Icterus (R) Neck: Full Range of Motion, Normal Inspection Respiratory: Accessory Muscle Use, Respiratory Distress, Wheezing Cardiovascular: Regular Rate, Rhythm Capillary Refill: Less Than 3 Seconds Extremity: Normal Capillary Refill, Normal Inspection, No Pedal Edema Neurologic/Psychiatric: Alert, Oriented x3 Skin: Normal Color, Warm/Dry Lymphatic: No Adenopathy Results Lab Laboratory Tests 04/03/22 07:38 04/04/22 06:00 Assessment/Plan Assessment/Plan 1 NETTA NICHOLS MD Apr 04, 2022 08:46
[2022-04-04] MEDS: SENNOSIDES 8.6 MG (SENOKOT) TAB PO SCH ×2 (09:00→20:56)
[2022-04-04] MEDS: DOCUSATE SODIUM 100 MG (COLACE) CAP PO SCH ×2 (09:00→20:54)
[2022-04-04] MEDS ORDERED: REMDESIVIR INJ 200 MG in NS (IVPB) 210 ML IV NR (09:30)
[2022-04-04] MEDS: PANTOPRAZOLE 40 MG (PROTONIX) VIAL IV SCH (09:50)
[2022-04-04] MEDS: ENOXAPARIN INJECTION 30 MG/0.3 ML SYR SC SCH (15:00)
[2022-04-05] VITALS (21 sets, daily range): BP systolic 99–141; BP diastolic 64–97
[2022-04-05] MEDS: methylPREDNISolone 40 MG/ML (Solu-MEDROL) VIAL IV SCH ×3 (01:02→13:00)
[2022-04-05] MEDS: CEFEPIME INJECTION 1,000 MG in NS (IVPB) 50 ML IV SCH ×3 (01:02→06:21)
[2022-04-05] MEDS: morphine INJ 4 MG/ML 1 ML (VIAL/SYRINGE) IV PRN ×3 (01:49→22:12)
[2022-04-05] MEDS: RT-ALBUTEROL HFA 8.5 GM INHALER IH SCH ×4 (02:50→14:00)
[2022-04-05 05:26] LABS: BASOPHILS % (AUTO) 0 % (0-10); EOSINOPHILS % (AUTO) 0 % (0-10); HEMATOCRIT 34 % (35-52); HEMOGLOBIN 11.4 g/dL (11.5-16.0); LYMPHOCYTES # (AUTO) 0.3 10^3/uL (1.0-4.0); LYMPHOCYTES % (AUTO) 5 % (12-44); MEAN CORPUSCULAR HEMOGLOBIN 31 pg (25-34); MEAN CORPUSCULAR HGB CONC 34 g/dL (32-36); MEAN CORPUSCULAR VOLUME 93 fL (80-99); MEAN PLATELET VOLUME 9.5 fL (9.0-12.2); MONOCYTES # (AUTO) 0.3 10^3/uL (0.0-1.0); MONOCYTES % (AUTO) 6 % (0-12); NEUTROPHILS # (AUTO) 4.1 10^3/uL (1.8-7.8); NEUTROPHILS % (AUTO) 88 % (42-75); PLATELET COUNT 166 10^3/uL (130-400); WHITE BLOOD COUNT 4.7 10^3/uL (4.3-11.0)
[2022-04-05] MEDS: NS IV 1000 ML 1,000 ML IV SCH ×2 (05:33→09:28)
[2022-04-05 05:37] LABS: ALBUMIN 3.7 GM/DL (3.2-4.5); POTASSIUM 4.1 MMOL/L (3.6-5.0)
[2022-04-05 05:40] LABS: TOTAL PROTEIN 5.8 GM/DL (6.4-8.2)
[2022-04-05 05:41] LABS: BILIRUBIN,TOTAL 0.5 MG/DL (0.1-1.0)
[2022-04-05 05:43] LABS: CREATININE SERUM 0.66 MG/DL (0.60-1.30); PHOSPHORUS 2.7 MG/DL (2.3-4.7)
[2022-04-05 05:47] LABS: MAGNESIUM 1.7 MG/DL (1.6-2.4)
[2022-04-05 05:48] LABS: LYMPHOCYTES % (MANUAL) 3 %; MONOCYTES % (MANUAL) 6 %; NEUTROPHILS % (MANUAL) 91 %; RBC MORPH NORMAL
[2022-04-05] MEDS: POTASSIUM CL 10MEQ/50ML IVPB 50 ML IV SCH (06:04)
[2022-04-05] MEDS: KCL 20 MEQ TAB (K-DUR) PO SCH (06:05)
[2022-04-05] MEDS: inSUlin ASPART (NovoLOG) 1 UNIT/0.01 ML (CHARGE PER UNIT) SC SCH ×3 (06:05→15:26)
[2022-04-05] MEDS: MAGNESIUM 1 GM/100 ML IVPB 100 ML IV SCH (06:05)
--- NOTE | 2022-04-05 06:53 | Diagnostic Imaging Report ---
EXAMINATION: Chest 1 view HISTORY: Short of breath COMPARISON: 04/04/2022 FINDINGS: Lungs are hyperinflated. There is moderate base atelectasis. No edema or pneumonia. No pleural effusion or pneumothorax. Heart size is normal. IMPRESSION: 1. Stable mild right base atelectasis. Dictated by: Dictated on workstation # [id number]
--- NOTE | 2022-04-05 07:56 | Progress Note - Hospitalist ---
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 She presents with SOB. She has severe emphysema. She continues to smoke. She was found to have a right lower lobe pneumonia. Pt was placed on Cefepime, Azithromycin, IV steroids, and breathing treatments. Subjective/Events-last exam Patient declining Talked about end of life care in-depth Comfort care orders placed and patient spoke to her and everyone in agreement with the plan for comfort care and moving to 4th floor Review of Systems Pulmonary: Dyspnea Gastrointestinal: Nausea Focused Exam Lactate Level 04/03/22 10:39: Lactic Acid Level 2.30*H 04/03/22 12:49: Lactic Acid Level 2.12*H 04/03/22 14:49: Lactic Acid Level 1.49 Objective Exam Vital Signs Vital Signs Date Time Temp Pulse Resp B/P (MAP) Pulse Ox O2 Delivery O2 Flow Rate FiO2 04/05/22 18:00 122 25 109/78 (88) 92 Nasal Cannula 2.00 04/05/22 16:00 28 04/05/22 13:09 36.2 Capillary Refill : Less Than 3 Seconds General Appearance: Anxious, Chronically ill, Moderate Distress, Thin, Other (pale) Respiratory: Accessory Muscle Use, Decreased Breath Sounds, Respiratory Distress, Wheezing Cardiovascular: Regular Rate, Rhythm Neurologic/Psychiatric: Alert, Oriented x3, No Motor/Sensory Deficits, Normal Mood/Affect Results/Procedures Lab Laboratory Tests 04/05/22 05:13 Patient resulted labs reviewed. Assessment/Plan Assessment and Plan Assess & Plan/Chief Complaint Assessment: Acute on chronic respiratory failure requiring ICU transfer for BIPAP and Precedex now going comfort care Smoker COVID + (never had condition and remains unvaccinated) End stage COPD RLL PNA Plan: Supportive care Monitor O2 DNR Comfort care Critical Care Critically Ill Patient CYNDI MOLINA Apr 05, 2022 07:56
[2022-04-05] MEDS ORDERED: REMDESIVIR INJ 100 MG in NS (IVPB) 230 ML IV SCH (09:30)
--- NOTE | 2022-04-05 09:34 | Tele-ICU Progress Note ---
Subjective Date Seen by a Provider: Apr 05, 2022 Subjective/Events-last exam This virtual visit was conducted using real time audio/video. Thank you for asking us to see this patient for respiratory insufficiency due to pna and AECOPD. Also Covid positive. PMH: COPD/home O2 3 LPM, CAD, PAD, HTN, HL, XRT for lung CA, GERD, anx/dep. PE: Much less distress, cachectic. VSS. O2 sat 95% on 3 LPM HEENT: No obvious masses, adenopathy or JVD. Chest: Diminished. CV: RRR S1 S2 No murmur or added sounds. Abd: Non-tender. Bowel sounds Y. : Unremarkable. Cruz Y. [employer]/psychiatric: Grossly intact. No obvious focal findings. Extremities: No edema. Capillary refill < 3 seconds. Skin: unremarkable. Results: Elevated BUN 21 Decreased Hb 11.4. B.277/43/97 on BiPAP. CXR: Very hyperinflated, infiltrate at R base. Available chart/ vitals / labs / images reviewed. Video assessment done using teleICU camera, rest of exam as per RN. A/P: Respiratory insufficiency: Continue present management with Duonebs, medrol, precedex. Wean BiPAP as kisha. Monitor for increasing oxygenation needs and/or need for intubation. Pt states currently DNI. Critical Care: critically ill patient. Cont. abx, Adrien., SSI, PPI, Remdesivir. . Discussed with RN Verna. Asked RN to reach out to eICU if any questions or concerns later. Time spent with patient/coordination of care with other health professionals (mins): 25 Sepsis Event Evaluation Height, Weight, BMI Height: 5'1.00" Weight: 125lbs. 0.0oz. [id number]; 16.64 BMI Method:Stated Focused Exam Lactate Level 04/03/22 10:39: Lactic Acid Level 2.30*H 04/03/22 12:49: Lactic Acid Level 2.12*H 04/03/22 14:49: Lactic Acid Level 1.49 Exam Exam Patient acknowledged, consented, and participated in this virtual visit which was conducted using real time audio/video Vital Signs Date Time Temp Pulse Resp B/P (MAP) Pulse Ox O2 Delivery O2 Flow Rate FiO2 04/05/22 08:00 92 24 127/79 (95) 96 NIV Bilevel 28.00 04/05/22 07:50 36.4 04/05/22 07:02 77 16 97 28.00 04/05/22 07:00 80 04/05/22 07:00 79 16 141/88 (105) 97 NIV Bilevel 28.00 04/05/22 06:00 79 15 135/85 (102) 96 NIV Bilevel 30.00 04/05/22 05:10 36.9 04/05/22 05:00 85 18 133/71 (91) 96 NIV Bilevel 30.00 04/05/22 04:00 95 Nasal Cannula 5.00 04/05/22 04:00 77 14 125/82 (96) 96 NIV Bilevel 30.00 04/05/22 03:00 79 15 123/75 (91) 97 NIV Bilevel 30.00 04/05/22 02:51 77 16 96 30.00 04/05/22 02:00 85 17 125/78 (94) 98 NIV Bilevel 30.00 04/05/22 01:00 82 18 128/70 (89) 97 NIV Bilevel 30.00 04/05/22 01:00 82 04/05/22 00:00 95 Nasal Cannula 5.00 04/05/22 00:00 76 18 126/71 (89) 97 NIV Bilevel 30.00 04/04/22 23:02 94 21 94 30.00 04/04/22 23:00 87 18 122/89 (100) 94 NIV Bilevel 30.00 04/04/22 22:00 81 19 125/80 (95) 96 NIV Bilevel 30.00 04/04/22 21:00 96 17 127/68 (87) 97 NIV Bilevel 30.00 04/04/22 20:00 103 24 127/87 (100) 100 NIV Bilevel 30.00 04/04/22 20:00 95 Nasal Cannula 5.00 04/04/22 19:36 36.3 04/04/22 19:00 103 19 124/96 (105) 97 NIV Bilevel 30.00 04/04/22 19:00 101 04/04/22 18:17 94 Nasal Cannula 6.00 04/04/22 18:00 101 21 137/85 (102) 100 NIV Bilevel 30.00 04/04/22 17:48 NIV Bilevel 30.00 04/04/22 17:00 100 17 134/83 (100) 99 Nasal Cannula 5.00 04/04/22 16:00 98 18 134/83 (100) 99 Nasal Cannula 5.00 04/04/22 16:00 95 Nasal Cannula 5.00 04/04/22 15:09 Nasal Cannula 5.00 04/04/22 15:00 85 19 100/66 (77) 99 NIV Bilevel 30.00 04/04/22 14:00 98 18 124/74 (91) 99 NIV Bilevel 30.00 04/04/22 13:00 99 04/04/22 13:00 108 20 123/74 (90) 100 NIV Bilevel 30.00 04/04/22 12:00 95 NIV Bilevel 30 04/04/22 12:00 96 24 102/65 (77) 97 NIV Bilevel 30.00 04/04/22 12:00 36.7 04/04/22 11:57 NIV Bilevel 30.00 04/04/22 11:00 94 27 113/87 (96) 100 Nasal Cannula 5.00 04/04/22 10:00 93 13 122/83 (96) 100 Nasal Cannula 5.00 04/04/22 09:56 Nasal Cannula 5.00 I & O 04/05/22 07:00 Intake Total 925 ml Output Total 1900 ml Balance -975 ml Height & Weight Height: 5'1.00" Weight: 125lbs. 0.0oz. [id number]; 16.64 BMI Method:Stated General Appearance: Anxious, Chronically ill, Mild Distress, Thin HEENT: PERRL/EOMI; No Scleral Icterus (L), No Scleral Icterus (R) Neck: Full Range of Motion, Normal Inspection Respiratory: Accessory Muscle Use, Decreased Breath Sounds, Wheezing Cardiovascular: Regular Rate, Rhythm Capillary Refill: Less Than 3 Seconds Extremity: Normal Capillary Refill, Normal Inspection, No Pedal Edema Neurologic/Psychiatric: Alert, Oriented x3 Skin: Normal Color, Warm/Dry Lymphatic: No Adenopathy Results Lab Laboratory Tests 04/04/22 06:00 04/05/22 05:13 Assessment/Plan Assessment/Plan See free text. Critical Care: Critically Ill Patient PALOMA RAMOS MD Apr 05, 2022 09:34
[2022-04-05] MEDS: PANTOPRAZOLE 40 MG (PROTONIX) VIAL IV SCH (09:55)
[2022-04-05] MEDS: AZITHROMYCIN INJECTION 500 MG in NS (IVPB) 250 ML IV SCH (09:56)
[2022-04-05] MEDS: DOCUSATE SODIUM 100 MG (COLACE) CAP PO SCH ×2 (09:57→22:58)
[2022-04-05] MEDS: SENNOSIDES 8.6 MG (SENOKOT) TAB PO SCH ×2 (09:57→22:58)
[2022-04-05] MEDS: ALPRAZolam 0.25 MG (XANAX) TAB PO PRN ×2 (09:57→17:55)
[2022-04-05] MEDS ORDERED: CEFEPIME INJECTION 1,000 MG in NS (IVPB) 50 ML IV SCH (12:00)
[2022-04-05] MEDS: ENOXAPARIN INJECTION 30 MG/0.3 ML SYR SC SCH (13:00)
[2022-04-05] MEDS: DexMEDEtomidine 250 ML DRIP 250 ML IV SCH (13:02)
[2022-04-05] MEDS ORDERED: PROMETHAZINE INJ 25 MG/ML (PHENERGAN) AMP IVP PRN (18:30)
[2022-04-05] MEDS ORDERED: ARTIFICAL TEARS 0.4 ML UNIT DOSE (REFRESH PLUS) OU PRN (18:30)
[2022-04-05] MEDS ORDERED: ACETAMINOPHEN 650 MG SUPP (TYLENOL) PR PRN (18:30)
[2022-04-05] MEDS ORDERED: SALIVA STIMULANT MOUTH SPRAY (BIOTENE) 1.5 OZ MM PRN (18:30)
[2022-04-05] MEDS ORDERED: ONDANSETRON 4 MG/2 ML (SDV) Z0FRAN IVP PRN (18:30)
[2022-04-05] MEDS ORDERED: BISACODYL 10 MG SUPP (DULCOLAX) PR PRN (18:30)
[2022-04-05] MEDS ORDERED: DexMEDEtomidine 250 ML DRIP 250 ML IV SCH (19:00)
[2022-04-05] MEDS: LORazepam 1 MG (ATIVAN) TAB SL PRN (22:12)
[2022-04-06] MEDS: morphine INJ 4 MG/ML 1 ML (VIAL/SYRINGE) IV PRN ×2 (07:41→20:08)
[2022-04-06] MEDS: SENNOSIDES 8.6 MG (SENOKOT) TAB PO SCH ×2 (07:49→21:24)
[2022-04-06] MEDS: DOCUSATE SODIUM 100 MG (COLACE) CAP PO SCH ×2 (07:49→21:24)
--- NOTE | 2022-04-06 13:52 | Progress Note ---
Subjective Subjective/Events-last exam Pt sleeping deeply with lying in bed next to her and multiple family members at bedside. They report she seems comfortable and deny needing anything at this time. Focused Exam Lactate Level 04/03/22 14:49: Lactic Acid Level 1.49 Objective Exam Last Set of Vital Signs Vital Signs Date Time Temp Pulse Resp B/P (MAP) Pulse Ox O2 Delivery O2 Flow Rate FiO2 04/06/22 10:29 Nasal Cannula 2.00 04/05/22 18:00 122 25 109/78 (88) 92 04/05/22 16:00 28 04/05/22 13:09 36.2 Capillary Refill : Less Than 3 Seconds I&O Intake and Output 04/06/22 00:00 Intake Total 855 ml Output Total 1350 ml Balance -495 ml Intake Oral 505 ml IV Total 350 ml Output Urine Total 1350 ml General: Other (deep sleep) Extremities: Other (warm, no edema) Results/Procedures Lab Laboratory Tests 04/05/22 15:24: Glucometer 79 Assessment/Plan Assessment/Plan (1) Pneumonia due to COVID-19 virus Status: Acute Assessment & Plan: Initially started on remdesevir, steroids. Required bipap but with worsening respiratory failure and baseline oxygen dependent COPD, pt did not want intubation and decided to pursue comfort care goals. (2) COPD (chronic obstructive pulmonary disease) Status: Chronic (3) Pneumonia Status: Acute Assessment & Plan: Right lower lobe possible infiltrate, started on azithromycin, ceftriaxone and had cefepime, but changed goals to comfort, antibiotics were d/c. Qualifiers: Qualified Codes: J18.9 - Pneumonia, unspecified organism (4) Acute respiratory failure Status: Acute Assessment & Plan: Secondary to COVID pneumonia, possibly bacterial pneumoni and COPD exacerbation. Qualifiers: Qualified Codes: J96.01 - Acute respiratory failure with hypoxia (5) Chronic respiratory failure Status: Chronic Assessment & Plan: Morphine and ativan prn for comfort measures. Qualifiers: Qualified Codes: J96.11 - Chronic respiratory failure with hypoxia JENAE TIJERINA MD Apr 06, 2022 13:52
[2022-04-06] MEDS: LORazepam ORAL CONCENTRATE 2 MG/ML 30 ML (ATIVAN) PO PRN (20:24)
[2022-04-07] MEDS: LORazepam 1 MG (ATIVAN) TAB SL PRN (03:06)
[2022-04-07] MEDS: morphine INJ 4 MG/ML 1 ML (VIAL/SYRINGE) IV PRN ×3 (03:07→18:09)
[2022-04-07] MEDS: SENNOSIDES 8.6 MG (SENOKOT) TAB PO SCH ×2 (09:12→21:00)
[2022-04-07] MEDS: DOCUSATE SODIUM 100 MG (COLACE) CAP PO SCH ×2 (09:12→21:00)
[2022-04-07] MEDS: LORazepam ORAL CONCENTRATE 2 MG/ML 30 ML (ATIVAN) PO PRN (09:30)
--- NOTE | 2022-04-07 14:18 | Progress Note ---
Subjective Subjective/Events-last exam Family at bedside, pt sleeping deeply with slow respiratory rate and slightly gasping breaths. They state she was quite short of breath early this morning but has been comfortable since getting medications. Objective Exam Last Set of Vital Signs Vital Signs Date Time Temp Pulse Resp B/P (MAP) Pulse Ox O2 Delivery O2 Flow Rate FiO2 04/07/22 08:00 Nasal Cannula 2.00 04/05/22 18:00 122 25 109/78 (88) 92 04/05/22 16:00 28 04/05/22 13:09 36.2 Capillary Refill : Less Than 3 Seconds I&O Intake and Output 04/07/22 00:00 Intake Total 400 ml Output Total 1100 ml Balance -700 ml Intake Oral 400 ml Output Urine Total 1100 ml General: Other (deep sleep) Extremities: No Edema, Other (warm, no mottling) Assessment/Plan Assessment/Plan (1) Pneumonia due to COVID-19 virus Status: Acute Assessment & Plan: Initially started on remdesevir, steroids. Required bipap but with worsening respiratory failure and baseline oxygen dependent COPD, pt did not want intubation and decided to pursue comfort care goals. (2) COPD (chronic obstructive pulmonary disease) Status: Chronic (3) Pneumonia Status: Acute Assessment & Plan: Right lower lobe possible infiltrate, started on azithromycin, ceftriaxone and had cefepime, but changed goals to comfort, antibiotics were d/c. Qualifiers: Qualified Codes: J18.9 - Pneumonia, unspecified organism (4) Acute respiratory failure Status: Acute Assessment & Plan: Secondary to COVID pneumonia, possibly bacterial pneumoni and COPD exacerbation. Qualifiers: Qualified Codes: J96.01 - Acute respiratory failure with hypoxia (5) Chronic respiratory failure Status: Chronic Assessment & Plan: Morphine and ativan prn for comfort measures. Qualifiers: Qualified Codes: J96.11 - Chronic respiratory failure with hypoxia JENAE TIJERINA MD Apr 07, 2022 14:18
[2022-04-08] MEDS: morphine INJ 4 MG/ML 1 ML (VIAL/SYRINGE) IV PRN ×4 (01:00→18:42)
[2022-04-08] MEDS: GLYCOPYRROLATE 0.2 MG/ML (ROBINUL) 2 ML VIAL IV PRN ×3 (08:24→18:43)
--- NOTE | 2022-04-08 11:03 | Progress Note ---
Subjective Subjective/Events-last exam Pt sleeping deeply, mouth open with slow respiratory rate, appears comfortable. Family states she appeared to have pain earlier and was moving around in bed, but is better with morphine. She has not sat up or spoken since yesterday. They also noted she had some gurgling that is better after medication. Objective Exam Last Set of Vital Signs Vital Signs Date Time Temp Pulse Resp B/P (MAP) Pulse Ox O2 Delivery O2 Flow Rate FiO2 04/08/22 07:36 91 Nasal Cannula 2.00 04/05/22 18:00 122 25 109/78 (88) 04/05/22 16:00 28 04/05/22 13:09 36.2 Capillary Refill : Less Than 3 Seconds I&O Intake and Output 04/08/22 00:00 Intake Total 0 ml Output Total 325 ml Balance -325 ml Intake Oral 0 ml Output Urine Total 325 ml General: Other (somnolent) Lungs: Other (slow respiratory rate, no increased work of breathing, no gurgling) Extremities: Other (warm, no edema or mottling) Assessment/Plan Assessment/Plan (1) Pneumonia due to COVID-19 virus Status: Acute Assessment & Plan: Initially started on remdesevir, steroids. Required bipap but with worsening respiratory failure and baseline oxygen dependent COPD, pt did not want intubation and decided to pursue comfort care goals. (2) COPD (chronic obstructive pulmonary disease) Status: Chronic (3) Pneumonia Status: Acute Assessment & Plan: Right lower lobe possible infiltrate, started on azithromycin, ceftriaxone and had cefepime, but changed goals to comfort, antibiotics were d/c. Qualifiers: Qualified Codes: J18.9 - Pneumonia, unspecified organism (4) Acute respiratory failure Status: Acute Assessment & Plan: Secondary to COVID pneumonia, possibly bacterial pneumoni and COPD exacerbation. Qualifiers: Qualified Codes: J96.01 - Acute respiratory failure with hypoxia (5) Chronic respiratory failure Status: Chronic Assessment & Plan: Morphine and ativan prn for comfort measures. Qualifiers: Qualified Codes: J96.11 - Chronic respiratory failure with hypoxia JENAE TIJERINA MD Apr 08, 2022 11:03
[2022-04-08] MEDS: DOCUSATE SODIUM 100 MG (COLACE) CAP PO SCH ×2 (14:07→19:33)
[2022-04-08] MEDS: SENNOSIDES 8.6 MG (SENOKOT) TAB PO SCH ×2 (14:08→19:33)
[2022-04-09] MEDS: morphine INJ 4 MG/ML 1 ML (VIAL/SYRINGE) IV PRN ×4 (00:20→13:28)
[2022-04-09] MEDS: GLYCOPYRROLATE 0.2 MG/ML (ROBINUL) 2 ML VIAL IV PRN (00:21)
[2022-04-09] MEDS: DOCUSATE SODIUM 100 MG (COLACE) CAP PO SCH (09:07)
[2022-04-09] MEDS: SENNOSIDES 8.6 MG (SENOKOT) TAB PO SCH (09:08)
--- NOTE | 2022-04-09 11:02 | Progress Note ---
Subjective Subjective/Events-last exam Pt appears to be more somenolent, son states she did not open her eyes in any meaningful way yesterday. Objective Exam Last Set of Vital Signs Vital Signs Date Time Temp Pulse Resp B/P (MAP) Pulse Ox O2 Delivery O2 Flow Rate FiO2 04/09/22 08:00 71 Nasal Cannula 2.00 04/05/22 18:00 122 25 109/78 (88) 04/05/22 16:00 28 04/05/22 13:09 36.2 Capillary Refill : Less Than 3 Seconds I&O Intake and Output 04/09/22 00:00 Intake Total 50 ml Output Total 780 ml Balance -730 ml Intake Oral 50 ml Output Urine Total 780 ml General: Other (somnolent, breathing with mouth open and chin slack, unlabored but slow mildly gasping with breath) Extremities: Other (warm, no mottling) Assessment/Plan Assessment/Plan (1) Pneumonia due to COVID-19 virus Status: Acute Assessment & Plan: Initially started on remdesevir, steroids. Required bipap but with worsening respiratory failure and baseline oxygen dependent COPD, pt did not want intubation and decided to pursue comfort care goals. (2) COPD (chronic obstructive pulmonary disease) Status: Chronic (3) Pneumonia Status: Acute Assessment & Plan: Right lower lobe possible infiltrate, started on azithromycin, ceftriaxone and had cefepime, but changed goals to comfort, antibiotics were d/c. Qualifiers: Qualified Codes: J18.9 - Pneumonia, unspecified organism (4) Acute respiratory failure Status: Acute Assessment & Plan: Secondary to COVID pneumonia, possibly bacterial pneumoni and COPD exacerbation. Qualifiers: Qualified Codes: J96.01 - Acute respiratory failure with hypoxia (5) Chronic respiratory failure Status: Chronic Assessment & Plan: Morphine and ativan prn for comfort measures. Qualifiers: Qualified Codes: J96.11 - Chronic respiratory failure with hypoxia JENAE TIJERINA MD Apr 09, 2022 11:02
--- NOTE | 2022-04-09 15:00 | Discharge Summary ---
Discharge Summary Date of Admission Apr 03, 2022 at 10:30 Date of Discharge Apr 09, 2022 Admission Diagnosis Acute on chronic resp failure PNA Smoker Comfort Measures/ End of Life Care: Comfort Measures Date of : Apr 09, 2022 Discharge Diagnosis (1) Pneumonia due to COVID-19 virus Status: Acute Assessment & Plan: Initially started on remdesevir, steroids. Required bipap but with worsening respiratory failure and baseline oxygen dependent COPD, pt did not want intubation and decided to pursue comfort care goals. (2) COPD (chronic obstructive pulmonary disease) Status: Chronic (3) Pneumonia Status: Acute Assessment & Plan: Right lower lobe possible infiltrate, started on azithromycin, ceftriaxone and had cefepime, but changed goals to comfort, antibiotics were d/c. Qualifiers: Qualified Codes: J18.9 - Pneumonia, unspecified organism (4) Acute respiratory failure Status: Acute Assessment & Plan: Secondary to COVID pneumonia, possibly bacterial pneumonia and COPD exacerbation. Qualifiers: Qualified Codes: J96.01 - Acute respiratory failure with hypoxia (5) Chronic respiratory failure Status: Chronic Assessment & Plan: Morphine and ativan prn for comfort measures. Qualifiers: Qualified Codes: J96.11 - Chronic respiratory failure with hypoxia JENAE TIJERINA MD Apr 09, 2022 15:00
== END 2022-04-09 19:12 | disposition expired | DRG 177 ==
LOC: EDUNIT# 07:33 → ER 07:34 → CSD 10:30 → ICU 14:20 → 4TH 04-05 22:07
PROVIDERS: ADMIT Internal Medicine; ATTEND Family Medicine
PROC: XW033E5 Introduction of Remdesivir Anti-infective into Peripheral Vein, Percutaneous Approach, New Technology Group 5 (ICD-10-PCS; principal; 2022-04-03)
PROC: 8E0ZXY6 Isolation (ICD-10-PCS; 2022-04-03)
PROC: 5A09357 Assistance with Respiratory Ventilation, Less than 24 Consecutive Hours, Continuous Positive Airway Pressure (ICD-10-PCS; 2022-04-03)
DX: U07.1 COVID-19 (principal); J12.82 Pneumonia due to coronavirus disease 2019; J96.21 Acute and chronic respiratory failure with hypoxia; J96.22 Acute and chronic respiratory failure with hypercapnia; J44.0 Chronic obstructive pulmonary disease with (acute) lower respiratory infection; J44.1 Chronic obstructive pulmonary disease with (acute) exacerbation; E87.1 Hypo-osmolality and hyponatremia; Z79.82 Long term (current) use of aspirin; Z79.899 Other long term (current) drug therapy; I10 Essential (primary) hypertension; E78.00 Pure hypercholesterolemia, unspecified; K21.9 Gastro-esophageal reflux disease without esophagitis; F32.A Depression, unspecified; Z95.5 Presence of coronary angioplasty implant and graft; I25.10 Atherosclerotic heart disease of native coronary artery without angina pectoris; I25.2 Old myocardial infarction; M79.7 Fibromyalgia; F41.9 Anxiety disorder, unspecified; Z99.81 Dependence on supplemental oxygen; Z85.118 Personal history of other malignant neoplasm of bronchus and lung; Z92.3 Personal history of irradiation; E87.6 Hypokalemia; F17.210 Nicotine dependence, cigarettes, uncomplicated; Z51.5 Encounter for palliative care; Z66 Do not resuscitate; I73.9 Peripheral vascular disease, unspecified
CPT/HCPCS: 36415; 71045; 80048; 80053; 80076; 82805; 82947; 83605; 83735; 84100; 85007; 85025; 85027; 85379; 87636; 93005; 94640; 94660; 94664; 96361; 96365; 96375